=== PATIENT | female | born 1940 | race Caucasian/White ===

== ENCOUNTER 2023-06-04 22:05 | Inpatient (IN) | payer MEDICARE, MEDICAID ==
[~2023-06-04] VITALS: Ht 154 cm; Wt 49.3 kg
[2023-06-04 22:47] LABS: HEMOGLOBIN 15.2 g/dL (11.5-16.0)
[2023-06-04 22:49] LABS: BASOPHILS % (AUTO) 1 % (0-10); EOSINOPHILS % (AUTO) 0 % (0-10); HEMATOCRIT 47 % (35-52); LYMPHOCYTES # (AUTO) 1.2 10^3/uL (1.0-4.0); LYMPHOCYTES % (AUTO) 30 % (12-44); MEAN CORPUSCULAR HEMOGLOBIN 29 pg (25-34); MEAN CORPUSCULAR HGB CONC 32 g/dL (32-36); MEAN CORPUSCULAR VOLUME 89 fL (80-99); MEAN PLATELET VOLUME 11.8 fL (9.0-12.2); MONOCYTES # (AUTO) 0.7 10^3/uL (0.0-1.0); MONOCYTES % (AUTO) 17 % (0-12); NEUTROPHILS # (AUTO) 2.1 10^3/uL (1.8-7.8); NEUTROPHILS % (AUTO) 53 % (42-75); PLATELET COUNT 114 10^3/uL (130-400); WHITE BLOOD COUNT 4.1 10^3/uL (4.3-11.0)
--- NOTE | 2023-06-04 22:52 | ED General ---
General Chief Complaint: General Problems/Pain Stated Complaint: WEAKNESS Nursing Triage Note: PT TO ED W/ C/O GENERALIZED WEAKNESS, DECREASED APPETITE ONSET X2 DAYS, OCCASIONAL COUGH, JIMENEZ. PT VERY POOR HISTORIAN Source of Information: Patient (EXTREMELY POOR HISTORIAN AND EXTREMELY HARD OF HEARING--ATTEMPTED TO COMMUNICATE BY WRITING, AND SHE IS STILL AN EXTREMELY POOR HISTORIAN EVEN WITH THIS FORM OF COMMUNICATION. ) History of Present Illness Date Seen by Provider: Jun 04, 2023 Time Seen by Provider: 22:10 Initial Comments MALE FRIEND BROUGHT HER HERE AND DROPPED HER OFF AT THE FRONT OF ER, ER STAFF ASSISTED HER OUT OF VEHICLE AND INTO WHEELCHAIR AND INTO HER. THE PERSON THAT BROUGHT HER PROMPTLY LEFT AT THAT TIME, NOT GIVING ANY INFORMATION. PT C/O GENERALIZED WEAKNESS, AND HAS NOT BEEN EATING OR DRINKING SHE IS UNABLE TO STATE TO ME HOW LONG SHE HAS BEEN FEELING THIS WAY,BUT SHE REPORTED TO RN THAT IT HAD BEEN 2 DAYS SHE REPORTED OCCASIONAL COUGH AND HEADACHE TO RN SHE DENIED ANY OTHER SYMPTOMS TO ME UNABLE TO OBTAIN ANY OTHER INFORMATION FROM PT SHE DOES NOT KNOW WHO HER DR IS, WHAT MEDICAL PROBLEMS SHE HAS OR WHAT MEDICATIONS SHE TAKES. SHE DID REPORT TO RN THAT SHE HAS HAD COLON CANCER AND "THYROID ISSUES" SHE DOES BRING IN A HAND-WRITTEN LIST OF HER ALLERGIES SHE HAS NOT HAD ANY PRIOR VISITS HERE THROUGH MED RECONCILIATION, PT HAS BEEN PRESCRIBED: LEVOTHYROXINE, LINZESS AND OMEPRAZOLE BY DR. TON OSBORNE) AND VIKA GALLARDO PT IS EXTREMELY HARD OF HEARING, AND STATES SHE DID NOT BRING HER HEARING AIDS WITH HER. PT APPARENTLY LIVES ALONE Allergies and Home Medications Allergies Coded Allergies: Penicillins (Unverified Allergy, Unknown, 06/04/23) aspirin (Unverified Allergy, Unknown, 06/04/23) cephalexin (Unverified Allergy, Unknown, 06/04/23) codeine (Unverified Allergy, Unknown, 06/04/23) diphenhydramine (Unverified Allergy, Unknown, 06/04/23) iodine (Unverified Allergy, Unknown, 06/04/23) meperidine (Unverified Allergy, Unknown, 06/04/23) Uncoded Allergies: ANTIHISTAMINES (Allergy, Unknown, 06/04/23) DARVOTRON (Allergy, Unknown, 06/04/23) Patient Home Medication List Home Medication List Reviewed: Yes Review of Systems Review of Systems Constitutional: see HPI, malaise, weakness, other (DECREASED APPETITE) Gastrointestinal: loss of appetite Past Ynkjiah-Moqdxd-Ehufkd Hx Patient Social History Tobacco Use?: No Use of E-Cig and/or Vaping dev: No Substance use?: No Alcohol Use?: No Pt feels they are or have been: No Past Medical History Surgery/Hospitalization HX: COLON CA THYROID"ISSUES" Gastrointestinal: Yes (COLON CANCER) Chronic Constipation Endocrine: Yes Hypothyroidsim HEENT: Yes Hearing Impairment: Hard of Hearing Physical Exam Vital Signs Vital Signs - First Documented 06/04/23 22:10 Temp 36.9 Pulse 88 Resp 16 B/P (MAP) 111/75 (87) Pulse Ox 98 O2 Delivery Room Air Capillary Refill : Less Than 3 Seconds Height, Weight, BMI Height: '" Weight: lbs. oz. kg; 18.00 BMI Method: General Appearance: No Apparent Distress, WD/WN, Thin, Other (PT WITH HAIR DYED PURPLE, WEARING A PURPLE SCARF ON HER HEAD AND ALL CLOTHING IS PURPLE) HEENT: PERRL/EOMI, Other (ORAL MUCOSA SLIGHTLY DRY) Neck: Normal Inspection Respiratory: Normal Breath Sounds, No Accessory Muscle Use, No Respiratory D istress Cardiovascular: Regular Rate, Rhythm, No Edema, No JVD, No Murmur, Normal Peripheral Pulses Gastrointestinal: Normal Bowel Sounds, No Pulsatile Mass, Non Tender, Soft Back: No CVA Tenderness Extremity: Normal Capillary Refill, Normal Inspection, Normal Range of Motion, Non Tender, No Calf Tenderness, No Pedal Edema Neurologic/Psychiatric: Alert, Oriented x3 (GROSSLY ORIENTED, BUT IS EXTREMELY DIFFICULT TO OBTAIN ANY DETAILED MENTAL STATUS EXAM DUE TO PT'S HEARING DEFICIT, WELL POOR MEMORY--AGAIN, ATTEMPTED TO COMMUNICATE BY WRITING AND PT IS STILL AN EXTREMELY POOR HISTORIAN), No Motor/Sensory Deficits (GROSS MOTOR / SENSORY INTACT. PT WITH GENERALIZED WEAKNESS, BUT NO FOCAL DEFICITS. ), Normal Mood/Affect, piston maker II-XII Norm as Tested Skin: Normal Color, Warm/Dry Focused Exam Lactate Level 06/04/23 22:36: Lactic Acid Level 1.05 Lactic Acid Level Laboratory Tests Test 06/04/23 22:36 Lactic Acid Level 1.05 MMOL/L (0.50-2.00) Progress/Results/Core Measures Suspected Sepsis SIRS Temperature: Pulse: 88 Respiratory Rate: 16 Laboratory Tests 06/04/23 22:36: White Blood Count 4.1L Blood Pressure 111 /75 Mean: 87 06/04/23 22:36: Lactic Acid Level 1.05 Laboratory Tests 06/04/23 22:36: Creatinine 1.33H, INR Comment 1.1, Platelet Count 114L, Total Bilirubin 0.6 Results/Orders Lab Results Laboratory Tests Test 06/04/23 22:36 06/04/23 22:38 06/04/23 23:07 Range/Units White Blood Count 4.1 L 4.3-11.0 10^3/uL Red Blood Count 5.31 H 3.80-5.11 10^6/uL Hemoglobin 15.2 11.5-16.0 g/dL Hematocrit 47 35-52 % Mean Corpuscular Volume 89 80-99 fL Mean Corpuscular Hemoglobin 29 25-34 pg Mean Corpuscular Hemoglobin Concent 32 32-36 g/dL Red Cell Distribution Width 13.9 10.0-14.5 % Platelet Count 114 L 130-400 10^3/uL Mean Platelet Volume 11.8 9.0-12.2 fL Immature Granulocyte % (Auto) 1 % Neutrophils (%) (Auto) 53 42-75 % Lymphocytes (%) (Auto) 30 12-44 % Monocytes (%) (Auto) 17 H 0-12 % Eosinophils (%) (Auto) 0 0-10 % Basophils (%) (Auto) 1 0-10 % Neutrophils # (Auto) 2.1 1.8-7.8 10^3/uL Lymphocytes # (Auto) 1.2 1.0-4.0 10^3/uL Monocytes # (Auto) 0.7 0.0-1.0 10^3/uL Eosinophils # (Auto) 0.0 0.0-0.3 10^3/uL Basophils # (Auto) 0.0 0.0-0.1 10^3/uL Immature Granulocyte # (Auto) 0.0 0.0-0.1 10^3/uL Percent Immature Platelet Fraction 8.8 H 0.0-7.6 % Erythrocyte Sedimentation Rate 1 0-30 MM/HR Prothrombin Time 14.5 12.2-14.7 SEC INR Comment 1.1 0.8-1.4 Activated Partial Thromboplast Time 27 24-35 SEC Sodium Level 133 L 135-145 MMOL/L Potassium Level 4.3 3.6-5.0 MMOL/L Chloride Level 105 98-107 MMOL/L Carbon Dioxide Level 18 L 21-32 MMOL/L Anion Gap 10 5-14 MMOL/L Blood Urea Nitrogen 19 H 7-18 MG/DL Creatinine 1.33 H 0.60-1.30 MG/DL Estimat Glomerular Filtration Rate 40 BUN/Creatinine Ratio 14 Glucose Level 110 H 70-105 MG/DL Lactic Acid Level 1.05 0.50-2.00 MMOL/L Calcium Level 9.9 8.5-10.1 MG/DL Corrected Calcium 10.1 8.5-10.1 MG/DL Magnesium Level 2.0 1.6-2.4 MG/DL Total Bilirubin 0.6 0.1-1.0 MG/DL Aspartate Amino Transf (AST/SGOT) 26 5-34 U/L Alanine Aminotransferase (ALT/SGPT) 14 0-55 U/L Alkaline Phosphatase 100 40-136 U/L Total Creatine Kinase 43 29-168 U/L Creatine Kinase MB 0.9 <6.6 NG/ML Myoglobin 85.7 10.0-92.0 NG/ML Troponin I < 0.028 <0.028 NG/ML C-Reactive Protein High Sensitivity 0.98 H 0.00-0.50 MG/DL Total Protein 6.2 L 6.4-8.2 GM/DL Albumin 3.8 3.2-4.5 GM/DL Amylase Level 123 25-125 U/L Lipase 82 H 8-78 U/L TSH [place] Testing 4.00 0.35-4.94 UIU/ML Smear Scan YES Influenza Type A (RT-PCR) Not Detected Not Detecte Influenza Type B (RT-PCR) Not Detected Not Detecte SARS-CoV-2 RNA (RT-PCR) Detected H Not Detecte Urine Color YELLOW Urine Clarity CLEAR Urine pH 5.5 5-9 Urine Specific [place] 1.020 1.016-1.022 Urine Protein NEGATIVE NEGATIVE Urine Glucose (UA) NEGATIVE NEGATIVE Urine Ketones NEGATIVE NEGATIVE Urine Nitrite NEGATIVE NEGATIVE Urine Bilirubin NEGATIVE NEGATIVE Urine Urobilinogen 0.2 < = 1.0 MG/DL Urine Leukocyte Esterase NEGATIVE NEGATIVE Urine RBC (Auto) NEGATIVE NEGATIVE Urine RBC NONE /HPF Urine WBC NONE /HPF Urine Crystals PRESENT H /LPF Urine Amorphous Sediment FEW OSVALDO URATES H /LPF Urine Bacteria NEGATIVE /HPF Urine Casts PRESENT /LPF Urine Hyaline Casts RARE /LPF Urine Mucus SMALL H /LPF Urine Culture Indicated NO My Orders Orders - REYNA VANN DO Accucheck Stat ONCE (06/04/23 22:23) Ed Iv/Invasive Line Start (06/04/23 22:23) Ekg Tracing (06/04/23 22:23) Catheter(Urinary) Insert & Ass 03,15 (06/04/23 22:23) O2 (06/04/23 22:23) Monitor-Rhythm Ecg Trace Only (06/04/23 22:23) Ct Head Wo-R/O Stroke (06/04/23 22:23) Chest 1 View, Ap/Pa Only (06/04/23:) Amylase (06/04/23 22:) Cbc And Automated Diff (06/04/23 22:) Comprehensive Metabolic Panel (06/04/23 22:) Creatine Kinase (06/04/23 22:) Creatine Kinase Mb (06/04/23 22:23) Hs C Reactive Protein (06/04/23 22:23) Lactic Acid Analyzer (06/04/23 22:23) Lipase (06/04/23 22:23) Magnesium (06/04/23 22:23) Protime With Inr (06/04/23 22:23) Partial Thromboplastin Time (06/04/23 22:23) Thyroid Analyzer (06/04/23 22:23) Ua Culture If Indicated (06/04/23 22:23) Erythrocyte Sedimentation Rate (06/04/23 22:23) Myoglobin Serum (06/04/23 22:23) Troponin I Early (06/04/23 22:23) Ed Iv/Invasive Line Start (06/04/23 22:23) Covid 19 Inhouse Test (06/04/23 22:23) Influenza A And B By Pcr (06/04/23 22:23) Vital Signs/I&O 06/04/23 22:10 Temp 36.9 Pulse 88 Resp 16 B/P (MAP) 111/75 (87) Pulse Ox 98 O2 Delivery Room Air Capillary Refill : Less Than 3 Seconds Blood Pressure Mean: 87 Progress Note : Progress Note VITALS ON ARRIVAL: TEMP 36.9=98.4, HR 88, RR 16, BP 111/75, O2 SAT 98% ON ROOM AIR GIVEN: -IV FLUIDS LABS: -CBC WITH WBC 4.1, HGB 15.2, PLT 114,000 -CMP NA 133, K 4.3, BUN 19, CR 1.33, GLU 110, PROTEIN 6.2 -MG NORMAL -AMYLASE/LIPASE UNREMARKABLE -TROPONIN NEGATIVE -BNP NORMAL -PT/PTT/INR NORMAL -UA CLEAR -TSH 4.0 -SED RATE 1, CRP 0.98 -COVID POSITIVE -FLU NEGATIVE EKG UNREMARKABLE CXR--UNREMARKABLE, PENDING RADIOLOGIST REVIEW CT HEAD--NO ACUTE PROCESS VITALS STABLE, AFEBRILE NO COUGH NO DYSPNEA NO HYPOXIA NO FEVER NO GI SYMPTOMS UNEVENTFUL ER STAY DISCUSSED TEST RESULTS, AND NEED FOR ADMIT AND PT IS AGREEABLE TO ADMIT. NO PRIOR RECORDS ECG Initial ECG Impression Date: Jun 04, 2023 Initial ECG Impression Time: 23:21 Initial ECG Rate: 74 Initial ECG Rhythm: Normal Sinus Initial ECG Intervals OK 183 QRS 64 QT/QTC 363/390 Initial ECG Impression: Nonspecific Changes Initial ECG Comparisson: No Previous ECG Available Comment INTERPRETED BY ME Diagnostic Imaging Comments CXR--NO ACUTE PROCESS, PENDING RADIOLOGIST REVIEW CT HEAD--NO ACUTE PROCESS, PER [facility] RADIOLOGIST VIA PHONE AT [phone] AND VIA FAX AT [phone] Reviewed: Reviewed by Me, Discussed w/Radiologist Departure Communication (Admissions) 2342--SPOKE WITH DR. BEASLEY, HOSPITALIST, ACCEPTS PT FOR ADMIT Impression Primary Impression: COVID-19 virus infection Additional Impressions: Generalized weakness Dehydration Hard of hearing Unable to care for self Disposition: ADMITTED INPATIENT Condition: Stable Admissions Decision to Admit Reason: Admit from ER (General) Decision to Admit/Date: Jun 04, 2023 Time/Decision to Admit Time: 23:45 REYNA VANN DO Jun 04, 2023 22:52
[2023-06-04 22:54] LABS: SMEAR SCAN COMMENT YES
[2023-06-04 23:00] LABS: INR 1.1 (0.8-1.4); PROTHROMBIN TIME PATIENT 14.5 SEC (12.2-14.7)
[2023-06-04 23:02] LABS: ALBUMIN 3.8 GM/DL (3.2-4.5); CHLORIDE 105 MMOL/L (98-107); POTASSIUM 4.3 MMOL/L (3.6-5.0); SODIUM 133 MMOL/L (135-145)
[2023-06-04 23:04] LABS: AMYLASE 123 U/L (25-125); CALCIUM 9.9 MG/DL (8.5-10.1)
[2023-06-04 23:05] LABS: GLUCOSE 110 MG/DL (70-105); TOTAL PROTEIN 6.2 GM/DL (6.4-8.2)
[2023-06-04 23:06] LABS: BILIRUBIN,TOTAL 0.6 MG/DL (0.1-1.0); CARBON DIOXIDE 18 MMOL/L (21-32)
[2023-06-04 23:08] LABS: ALKALINE PHOSPHATASE 100 U/L (40-136); CREATININE SERUM 1.33 MG/DL (0.60-1.30); GFR ESTIMATED 40
[2023-06-04 23:09] LABS: BUN/CREATININE RATIO 14
[2023-06-04 23:11] LABS: ALANINE AMINOTRANSFERASE 14 U/L (0-55); ERYTHROCYTE SEDIMENTATION RATE 1 MM/HR (0-30)
[2023-06-04 23:12] LABS: CREATINE KINASE 43 U/L (29-168); LIPASE 82 U/L (8-78)
[2023-06-04 23:20] LABS: CREATINE KINASE MB 0.9 NG/ML (<6.6)
[2023-06-04 23:38] LABS: BACTERIA,URINE NEGATIVE /HPF; BILIRUBIN,URINE NEGATIVE (NEGATIVE); CLARITY,URINE CLEAR; COLOR,URINE YELLOW; GLUCOSE, URINE (UA) NEGATIVE (NEGATIVE); KETONES,URINE NEGATIVE (NEGATIVE); LEUKOCYTE ESTERASE ,URINE NEGATIVE (NEGATIVE); NITRITE,URINE NEGATIVE (NEGATIVE); PH,URINE 5.5 (5-9); PROTEIN,URINE NEGATIVE (NEGATIVE)
[2023-06-04 23:39] LABS: AMORPHOUS SEDIMENT,UR FEW AMOR URATES /LPF; HYALINE CASTS, URINE RARE /LPF
[2023-06-05] VITALS (7 sets, daily range): BP systolic 102–164; BP diastolic 62–72
[2023-06-05] MEDS ORDERED: LIDOCAINE UROJET 2% GEL 10 ML PKG TOP ONE (01:15)
[2023-06-05] MEDS ORDERED: ONDANSETRON INJECTION 4 MG/2 ML (SDV) IV PRN (01:30)
[2023-06-05] MEDS ORDERED: ACETAMINOPHEN 500 MG TABLET PO PRN (01:30)
[2023-06-05] MEDS: D5 1/2NS + KCL 20 MEQ/L 1000ML 1,000 ML IV SCH ×3 (01:52→21:31)
[2023-06-05 06:08] LABS: BASOPHILS % (AUTO) 0 % (0-10); EOSINOPHILS % (AUTO) 0 % (0-10); MEAN PLATELET VOLUME 11.7 fL (9.0-12.2)
[2023-06-05 06:10] LABS: HEMATOCRIT 45 % (35-52); HEMOGLOBIN 14.9 g/dL (11.5-16.0); LYMPHOCYTES # (AUTO) 1.2 10^3/uL (1.0-4.0); LYMPHOCYTES % (AUTO) 36 % (12-44); MEAN CORPUSCULAR HEMOGLOBIN 29 pg (25-34); MEAN CORPUSCULAR HGB CONC 33 g/dL (32-36); MEAN CORPUSCULAR VOLUME 87 fL (80-99); MONOCYTES # (AUTO) 0.6 10^3/uL (0.0-1.0); MONOCYTES % (AUTO) 17 % (0-12); NEUTROPHILS # (AUTO) 1.5 10^3/uL (1.8-7.8); NEUTROPHILS % (AUTO) 46 % (42-75); PLATELET COUNT 111 10^3/uL (130-400); WHITE BLOOD COUNT 3.3 10^3/uL (4.3-11.0)
[2023-06-05 06:12] LABS: POTASSIUM 4.4 MMOL/L (3.6-5.0)
[2023-06-05 06:13] LABS: CALCIUM 9.4 MG/DL (8.5-10.1)
[2023-06-05 06:17] LABS: CREATININE SERUM 1.03 MG/DL (0.60-1.30)
--- NOTE | 2023-06-05 07:47 | Diagnostic Imaging Report ---
EXAMINATION: CT head without contrast. TECHNIQUE: Multiple contiguous axial images were obtained through the brain without the use of intravenous contrast. All CT scans use one or more of the following dose optimizing techniques: automated exposure control, MA and/or KvP adjustment based on patient size and exam type or iterative reconstruction. HISTORY: Weakness. Focal neurologic deficit. Headache. COMPARISON: None available. FINDINGS: No large acute territorial ischemia, mass, or hemorrhage. No midline shift or mass effect. Decreased attenuation is seen in the periventricular and subcortical white matter. The ventricles and cortical sulci are prominent. The basilar cisterns are patent and unremarkable. The orbits are normal. Paranasal sinuses are normal. Mastoid air cells are clear. No soft tissue abnormality is seen. No osseus lesions or fractures are seen. IMPRESSION: 1. No large acute territorial ischemia, mass, or hemorrhage. 2. Chronic microvascular disease. 3. Generalized parenchymal volume loss. Agree with overnight report. Dictated by: Dictated on workstation # [id number]
--- NOTE | 2023-06-05 09:11 | Diagnostic Imaging Report ---
INDICATION: Generalized weakness, decreased appetite onset x2 days, occasional cough and headache. TECHNIQUE: Single view chest 10:56 PM CORRELATION STUDY: None FINDINGS: Heart size within normal limits. Vascularity slightly prominent. There is prominent calcification of the thoracic aorta. Lung parekh mildly hyperinflated with prominent interstitial markings likely chronic. No acute infiltrate. Mild biapical pleural thickening. [place] screw right humeral head. Mild S-type curvature thoracic spine. IMPRESSION: 1. Negative for acute abnormality of the chest. Likely mild chronic changes of the lung parekh. Dictated by: Dictated on workstation # [id number]
[2023-06-05] MEDS: IBUPROFEN 600 MG TABLET PO PRN (09:12)
--- NOTE | 2023-06-05 10:00 | History & Physical-Hospitalist ---
History of Present Illness HPI/Chief Complaint Patient is an 82-year-old female with past medical history of for thyroidism who presented to the emergency department due to weakness. She is unable to provide much history and is very hard of hearing. She is able to tell me that she has been feeling well but cannot tell me for how long will really quantify what that means. Most of the history is obtained from the record. She was dropped off by someone into the emergency room. She reported to them that she was weak and not eating or drinking well. He was found to have COVID in the emergency department. All she is able to tell me is that she is very careful and tries not to be around people and that she has no other medical problems besides taking her thyroid pill when she does not like to take pills. Source: patient Date Seen 06/05/23 Time Seen by a Provider: 09:53 Attending Physician PCP Admitting Physician: Inga Garvey MD Attending Physician: Inga Garvey MD Referring Physician Date of Admission Jun 05, 2023 at 00:43 Home Medications & Allergies Home Medications Reviewed patient Home Medication Reconciliation performed by pharmacy medication reconciliations valve technician and/or nursing. Patients Allergies have been reviewed. Allergies Allergies Coded Allergies Penicillins (Unverified Allergy, Unknown, 06/04/23) aspirin (Unverified Allergy, Unknown, 06/04/23) cephalexin (Unverified Allergy, Unknown, 06/04/23) codeine (Unverified Allergy, Unknown, 06/04/23) diphenhydramine (Unverified Allergy, Unknown, 06/04/23) iodine (Unverified Allergy, Unknown, 06/04/23) meperidine (Unverified Allergy, Unknown, 06/04/23) Uncoded Allergies ANTIHISTAMINES ( Allergy, Unknown, 06/04/23) DARVOTRON ( Allergy, Unknown, 06/04/23) Past Uviawod-Spuccx-Syxjmp Hx Patient Social History Tobacco Use?: No Use of E-Cig and/or Vaping dev: No Substance use?: No Alcohol Use?: No Pt feels they are or have been: No Immunizations Up To Date Tetanus Booster (TDap): Unknown Current Status status: No status: No Advance Directives: No Communicates: Verbally Preferred Spoken Language: Turkish Is interpretation needed?: No Sensory deficits: Vision impairment, Hearing impairment Past Medical History Chronic Constipation Hypothyroidsim Hearing Impairment: Hard of Hearing Review of Systems Constitutional: see HPI Physical Exam Physical Exam Vital Signs Vital Signs - First Documented 06/04/23 22:10 Temp 36.9 Pulse 88 Resp 16 B/P (MAP) 111/75 (87) Pulse Ox 98 O2 Delivery Room Air Capillary Refill : Less Than 3 Seconds Height, Weight, BMI Height: '" Weight: lbs. oz. kg; 18.00 BMI Method: General Appearance: No Apparent Distress, Chronically ill, Thin Respiratory: Lungs Clear, No Respiratory Distress Cardiovascular: Regular Rate, Rhythm, No Murmur Gastrointestinal: Normal Bowel Sounds, Non Tender, Soft Extremity: No Calf Tenderness, No Pedal Edema Neurologic/Psychiatric: Alert, Normal Mood/Affect, Other (oriented to major details) Results Results/Procedures Labs Laboratory Tests 06/04/23 22:36 06/05/23 05:25 Patient resulted labs reviewed. Imaging: Reviewed Imaging Report [facility] [place] [place] NAME: ALEXIS PHELPS [place] REC#: [id number] PT STATUS: ADM IN : 1940 PHYSICIAN: REYNA VANN DO ADMIT DATE: 06/05/23 Draft Date of Exam:06/04/23 CHEST 1 VIEW, AP/PA ONLY INDICATION: Generalized weakness, decreased appetite onset x2 days, occasional cough and headache. TECHNIQUE: Single view chest 10:56 PM CORRELATION STUDY: None FINDINGS: Heart size within normal limits. Vascularity slightly prominent. There is prominent calcification of the thoracic aorta. Lung parekh mildly hyperinflated with prominent interstitial markings likely chronic. No acute infiltrate. Mild biapical pleural thickening. [place] screw right humeral head. Mild S-type curvature thoracic spine. IMPRESSION: 1. Negative for acute abnormality of the chest. Likely mild chronic changes of the lung parekh. Dictated on workstation # [id number] Dict: 06/05/23 0746 Trans: 06/05/23 0909 TEMI [id number] Interpreted by: DIANA LERMA DO Electronically signed by: [facility] [place] NAME: ALEXIS PHELPS [place] REC#: [id number] PT STATUS: ADM IN : 1940 PHYSICIAN: REYNA VANN DO ADMIT DATE: 06/05/23 Signed Date of Exam:06/04/23 CT HEAD WO-R/O STROKE EXAMINATION: CT head without contrast. TECHNIQUE: Multiple contiguous axial images were obtained through the brain without the use of intravenous contrast. All CT scans use one or more of the following dose optimizing techniques: automated exposure control, MA and/or KvP adjustment based on patient size and exam type or iterative reconstruction. HISTORY: Weakness. Focal neurologic deficit. Headache. COMPARISON: None available. FINDINGS: No large acute territorial ischemia, mass, or hemorrhage. No midline shift or mass effect. Decreased attenuation is seen in the periventricular and subcortical white matter. The ventricles and cortical sulci are prominent. The basilar cisterns are patent and unremarkable. The orbits are normal. Paranasal sinuses are normal. Mastoid air cells are clear. No soft tissue abnormality is seen. No osseus lesions or fractures are seen. IMPRESSION: 1. No large acute territorial ischemia, mass, or hemorrhage. 2. Chronic microvascular disease. 3. Generalized parenchymal volume loss. Agree with overnight report. Dictated by: Dictated on workstation # [id number] Dict: 06/05/2343 Trans: 06/05/23800 TEMI [id number] Interpreted by: KAMALA BRANNON DO Electronically signed by: KAMALA BRANNON DO 06/05/23 0801 Assessment/Plan Admission Diagnosis COVID19 Admission Status: Inpatient Order (span 2 midnights) Reason for Inpatient Admission: see below Assessment and Plan COVID19 Debility DHARA Hypovolemic Hyponatremia Very weak PT/OT Not on oxygen so no need for decadron Continue IVF Creatinine improved so will decrease rate Hypothyroidism TSH normal Resume synthroid DVT ppx: Lovenox Diagnosis/Problems Diagnosis/Problems (1) DHARA (acute kidney injury) (2) COVID-19 virus infection Status: Acute (3) Unable to care for self Status: Acute (4) Hard of hearing Status: Acute (5) Generalized weakness Status: Acute (6) Dehydration Status: Acute Copy Copies To 1: NBA CAMILO MD, KATELYN M MD Jun 05, 2023 10:00
[2023-06-05] MEDS ORDERED: LEVOTHYROXINE 50 MCG TABLET PO NR (10:15)
[2023-06-05] MEDS: ENOXAPARIN 40 MG/0.4 ML SYRINGE SQ SCH (10:37)
[2023-06-06 00:05] VITALS: BP 163/70
[2023-06-06] MEDS: IBUPROFEN 600 MG TABLET PO PRN (03:09)
[2023-06-06 03:18] VITALS: BP 124/63
[2023-06-06] MEDS ORDERED: LEVOTHYROXINE 50 MCG TABLET PO SCH (06:30)
[2023-06-06 08:32] VITALS: BP 121/58
[2023-06-06] MEDS: ENOXAPARIN 40 MG/0.4 ML SYRINGE SQ SCH (09:48)
[2023-06-06] MEDS: D5 1/2NS + KCL 20 MEQ/L 1000ML 1,000 ML IV SCH (11:32)
[2023-06-06] MEDS ORDERED: LEVO50TA6 PO (12:43)
[2023-06-06] MEDS ORDERED: LINA72CA PO (12:43)
[2023-06-06 12:59] VITALS: BP 149/65
--- NOTE | 2023-06-06 14:11 | Physical Therapy Evaluation ---
PT Evaluation-General Medical Diagnosis Admission Date Jun 05, 2023 at 00:43 Medical Diagnosis: COVID Onset Date: Jun 06, 2023 Therapy Diagnosis Therapy Diagnosis: weakness Precautions Precautions/Isolations: Contact Isolation, Droplet Isolation Referral Reason for Referral: Evaluation/Treatment Medical History Additional Medical History neck pain Current History Pt presented to the ER with progressive weakness and inability to manage at home. Pt tested positive for COVID 19. Reviewed History: Yes Social History Home: Apartment Current Living Status: Alone Prior Prior Level of Function SCALE: Activities may be completed with or without assistive devices. 6-Rkbllnenjx-yucwivj completes the activity by him/herself with no assistance from a helper. 5-Set-up or Clean-up Assistance-helper sets up or cleans up; patient completes activity. [place] assists only prior to or following the activity. 4-Supervision or Touching Assistance-helper provides verbal cues and/or touching/steadying and/or contact guard assistance as patient completes activity. Assistance may be provided throughout the activity or intermittently. 3-Partial/Moderate Assistance-helper does LESS THAN HALF the effort. [place] lifts, holds or supports trunk or limbs, but provides less than half the effort. 2-Substantial/Maximal Assistance-helper does MORE THAN HALF the effort. [place] lifts or holds trunk or limbs and provides more than half the effort. 3-Owpqewnus-odjeye does ALL the effort. Patient does none of the effort to complete the activity. Or, the assistance of 2 or more helpers is required for the patient to complete the activity. If activity was not attempted, code reason: 7-Patient Refused. 9-Not Applicable-not attempted and the patient did not perform the activity before the current illness, exacerbation or injury. 10-Not Attempted due to Environmental Limitations-(lack of equipment, weather restraints, etc.). 88-Not Attempted due to Medical Conditions or Safety Concerns. Bed Mobility: 6 Transfers (B,C,W/C): 6 Gait: 6 PT Evaluation-Current Subjective Pt reports she hopes to go home soon. Objective Patient Orientation: Normal For Age Sensory Vision: Functional Hearing: Impaired Transfers Roll Left to Right (QC): 6 Sit to Lying (QC): 6 Lying to Sitting/Side of Bed(Q: 6 Sit to Stand (QC): 6 Chair/Jst-hg-Xbzjf Xfer(QC): 6 Gait Walk 150 ft (QC): 6 Gait Assistive Device: None Comments/Gait Description Pt demonstrated (I) with ambulation in the room including left and right hand turns. Balance Sitting Static: Good Sitting Dynamic: Good Standing Static: Good Standing Dynamic: Good Assessment/Needs Pt able to demonstrate independent mobility in her room. She does occassionally use furniture for balance. Pt resides in a small apartment. She demonstrated sufficient balance to return home at her prior level of function. Rehab Potential: Good PT Residential Goals Residential Goals PT Residential Goals Time Frame: Jun 06, 2023 Roll Left & Right (QC): 6 Sit to Lying (QC): 6 Lying-Sitting on Side/Bed(QC): 6 Sit to Stand (QC): 6 Chair/Jze-ie-Oloyk Xfer(QC): 6 Does the Patient Walk: Yes Walk 50ft with 2 Turns (QC): 6 PT Plan Problem List Problem List: Balance, Gait Treatment/Plan Treatment Plan: Discontinue PT, goals met Treatment Plan: Safety Treatment Duration: Jun 06, 2023 Frequency: 1 time per week Estimated Hrs Per Day: .25 hour per day Patient and/or Family Agrees t: Yes Safety Risks/Education Patient Education: Gait Training Teaching Recipient: Patient Teaching Methods: Demonstration, Discussion Time Time In: 1350 Time Out: 1410 DATE: Jun 06, 2023 Total Billed Treatment Time: 20 Total Billed Treatment visit, evaluation low complexity 20 min TIFFANIE HENDRICKS PT Jun 06, 2023 14:11
== END 2023-06-06 14:20 | disposition home or self-care (01) | DRG 178 ==
LOC: EDUNIT# 22:05 → ER 22:05 → 4TH 06-05 00:43
PROVIDERS: ADMIT Family Medicine; ATTEND Internal Medicine
PROC: 8E0ZXY6 Isolation (ICD-10-PCS; principal; 2023-06-05)
DX: U07.1 COVID-19 (principal); E87.1 Hypo-osmolality and hyponatremia; N17.9 Acute kidney failure, unspecified; R53.81 Other malaise; E86.1 Hypovolemia; E03.9 Hypothyroidism, unspecified; E86.0 Dehydration; H91.90 Unspecified hearing loss, unspecified ear; Z85.038 Personal history of other malignant neoplasm of large intestine
CPT/HCPCS: 36415; 70450; 71045; 80048; 80053; 81000; 82150; 82550; 82553; 83605; 83690; 83735; 83874; 84443; 84484; 85025; 85610; 85652; 85730; 86141; 87636; 93005; 93041

== ENCOUNTER 2023-06-09 17:35 | Observation (INO) | payer MEDICARE, MEDICAID ==
[~2023-06-09] VITALS: Ht 149.8 cm; Wt 45.9 kg
[~2023-06-09 17:35] MED LIST: LEVO50TA6 PO; LINA72CA PO
--- NOTE | 2023-06-09 17:53 | ED General ---
General Chief Complaint: General Problems/Pain Stated Complaint: WEAKNESS Source of Information: Patient, Caregiver (VERY LIMITED HISTORIAN AND VERY HARD OF HEARING. DOES NOT HAVE HER HEARING AIDS IN ), EMS, Old Records History of Present Illness Date Seen by Provider: Jun 09, 2023 Time Seen by Provider: 17:45 Initial Comments PT ARRIVES VIA EMS FROM HOME--PT APPARENTLY LIVES ALONE PT WAS ADMITTED 06/05-06/06/23--PT HAS COVID AND HER COMPLAINT LAST WEEK WAS GENERALIZED WEAKNESS C/O GENERALIZED WEAKNESS--PT UNABLE TO CARE FOR HERSELF TEMP WAS 102 FOR EMS TONIGHT UNABLE TO OBTAIN ANY OTHER INFORMATION FROM PT PT HAS NOT HAD ANY PRIOR VISITS OTHER THAN THE ADMIT THIS PAST WEEK SHE IS EXTREMELY HARD OF HEARING, AND EVEN WITH COMMUNICATING IN WRITING, SHE IS STILL A VERY POOR HISTORIAN. THERE IS NO ONE ELSE WITH HER TO GIVE ADDITIONAL INFORMATION Allergies and Home Medications Allergies Coded Allergies: Penicillins (Unverified Allergy, Unknown, 06/04/23) aspirin (Unverified Allergy, Unknown, 06/04/23) cephalexin (Unverified Allergy, Unknown, 06/04/23) codeine (Unverified Allergy, Unknown, 06/04/23) diphenhydramine (Unverified Allergy, Unknown, 06/04/23) iodine (Unverified Allergy, Unknown, 06/04/23) meperidine (Unverified Allergy, Unknown, 06/04/23) Uncoded Allergies: ANTIHISTAMINES (Allergy, Unknown, 06/04/23) DARVOTRON (Allergy, Unknown, 06/04/23) Patient Home Medication List Home Medication List Reviewed: Yes Levothyroxine Sodium (Levothyroxine Sodium) 50 Mcg Tablet, 50 MCG PO DAILY, (Reported) Entered as Reported by: SALEEM LILLY on 06/06/23 1243 Linaclotide (Linzess) 72 Mcg Capsule, 72 MCG PO DAILY, (Reported) Entered as Reported by: SALEEM LILLY on 06/06/23 1243 Review of Systems Review of Systems Constitutional: see HPI, malaise, weakness Past Nudlzkf-Nsgajb-Ctxplo Hx Patient Social History Tobacco Use?: No Substance use?: No Alcohol Use?: No Past Medical History Surgery/Hospitalization HX: COLON CA THYROID"ISSUES" Gastrointestinal: Yes (COLON CANCER) Chronic Constipation Endocrine: Yes Hypothyroidsim HEENT: Yes Hearing Impairment: Hard of Hearing Physical Exam Vital Signs Vital Signs - First Documented 06/09/23 17:40 Temp 38.0 Pulse 92 B/P (MAP) 131/75 (93) Pulse Ox 96 O2 Delivery Room Air Capillary Refill : Height, Weight, BMI Height: '" Weight: lbs. oz. kg; 18.00 BMI Method: General Appearance: No Apparent Distress, WD/WN, Chronically ill, Thin, Other (GENERALIZED WEAKNESS, LETHARGIC, MOANING) HEENT: PERRL/EOMI Neck: Normal Inspection Respiratory: Normal Breath Sounds, No Accessory Muscle Use, No Respiratory Distress Cardiovascular: Regular Rate, Rhythm, No Murmur Gastrointestinal: Non Tender, Soft Back: No CVA Tenderness Extremity: Normal Inspection, No Pedal Edema Neurologic/Psychiatric: Alert, No Motor/Sensory Deficits, workforce management manager II-XII Norm as Tested, Other (GENERALIZED WEAKNESS, NO FOCAL DEFICITS. LETHARGIC. ) Skin: Normal Color, Warm/Dry Focused Exam Lactate Level 06/09/23 18:00: Lactic Acid Level 1.05 Lactic Acid Level Laboratory Tests Test 06/09/23 18:00 Lactic Acid Level 1.05 MMOL/L (0.50-2.00) Progress/Results/Core Measures Suspected Sepsis SIRS Temperature: Pulse: Respiratory Rate: Laboratory Tests 06/09/23 18:00: White Blood Count 6.3 Blood Pressure / Mean: 06/09/23 18:00: Lactic Acid Level 1.05 Laboratory Tests 06/09/23 18:00: Creatinine 1.26, Platelet Count 138, Total Bilirubin 0.8 06/09/23 18:20: INR Comment 1.0 Results/Orders Lab Results Laboratory Tests Test 06/09/23 18:00 06/09/23 18:20 06/09/23 19:25 Range/Units White Blood Count 6.3 4.3-11.0 10^3/uL Red Blood Count 5.14 H 3.80-5.11 10^6/uL Hemoglobin 14.6 11.5-16.0 g/dL Hematocrit 45 35-52 % Mean Corpuscular Volume 88 80-99 fL Mean Corpuscular Hemoglobin 28 25-34 pg Mean Corpuscular Hemoglobin Concent 32 32-36 g/dL Red Cell Distribution Width 13.5 10.0-14.5 % Platelet Count 138 130-400 10^3/uL Mean Platelet Volume 11.0 9.0-12.2 fL Immature Granulocyte % (Auto) 1 % Neutrophils (%) (Auto) 58 42-75 % Lymphocytes (%) (Auto) 28 12-44 % Monocytes (%) (Auto) 12 0-12 % Eosinophils (%) (Auto) 0 0-10 % Basophils (%) (Auto) 0 0-10 % Neutrophils # (Auto) 3.7 1.8-7.8 10^3/uL Lymphocytes # (Auto) 1.8 1.0-4.0 10^3/uL Monocytes # (Auto) 0.7 0.0-1.0 10^3/uL Eosinophils # (Auto) 0.0 0.0-0.3 10^3/uL Basophils # (Auto) 0.0 0.0-0.1 10^3/uL Immature Granulocyte # (Auto) 0.1 0.0-0.1 10^3/uL Percent Immature Platelet Fraction 6.3 0.0-7.6 % Sodium Level 133 L 135-145 MMOL/L Potassium Level 4.6 3.6-5.0 MMOL/L Chloride Level 105 98-107 MMOL/L Carbon Dioxide Level 19 L 21-32 MMOL/L Anion Gap 9 5-14 MMOL/L Blood Urea Nitrogen 23 H 7-18 MG/DL Creatinine 1.26 0.60-1.30 MG/DL Estimat Glomerular Filtration Rate 42 BUN/Creatinine Ratio 18 Glucose Level 114 H 70-105 MG/DL Lactic Acid Level 1.05 0.50-2.00 MMOL/L Calcium Level 9.7 8.5-10.1 MG/DL Corrected Calcium 9.9 8.5-10.1 MG/DL Magnesium Level 1.9 1.6-2.4 MG/DL Total Bilirubin 0.8 0.1-1.0 MG/DL Aspartate Amino Transf (AST/SGOT) 30 5-34 U/L Alanine Aminotransferase (ALT/SGPT) 14 0-55 U/L Alkaline Phosphatase 85 40-136 U/L Troponin I < 0.028 <0.028 NG/ML Total Protein 6.4 6.4-8.2 GM/DL Albumin 3.7 3.2-4.5 GM/DL Smear Scan YES Prothrombin Time 13.2 12.2-14.7 SEC INR Comment 1.0 0.8-1.4 Activated Partial Thromboplast Time 28 24-35 SEC Urine Color YELLOW Urine Clarity CLOUDY Urine pH 6.0 5-9 Urine Specific [place] >=1.030 1.016-1.022 Urine Protein 3+ H NEGATIVE Urine Glucose (UA) NEGATIVE NEGATIVE Urine Ketones 1+ H NEGATIVE Urine Nitrite POSITIVE H NEGATIVE Urine Bilirubin NEGATIVE NEGATIVE Urine Urobilinogen 0.2 < = 1.0 MG/DL Urine Leukocyte Esterase 1+ H NEGATIVE Urine RBC (Auto) 3+ H NEGATIVE Urine RBC 25-50 H /HPF Urine WBC TNTC H /HPF Urine Squamous Epithelial Cells 5-10 /HPF Urine Crystals NONE /LPF Urine Bacteria MODERATE H /HPF Urine Casts NONE /LPF Urine Mucus NEGATIVE /LPF Urine Culture Indicated CULTURE PENDING My Orders Orders - REYNA VANN DO Ed Iv/Invasive Line Start (06/09/23 17:46) Ekg Tracing (06/09/23 17:46) O2 (06/09/23 17:46) Monitor-Rhythm Ecg Trace Only (06/09/23 17:46) Cbc And Automated Diff (06/09/23 17:46) Comprehensive Metabolic Panel (06/09/23 17:46) Lactic Acid Analyzer (06/09/23 17:46) Magnesium (06/09/23 17:46) Ua Culture If Indicated (06/09/23 17:46) Troponin I [place] (06/09/23 17:46) Chest 1 View, Ap/Pa Only (06/09/23 17:46) Lidocaine 2% (Urojet) (Lidocaine 2% (Uro (06/09/23 18:00) Blood Culture (06/09/23 17:49) Sputum Culture (06/09/23 17:49) Urine Culture (06/09/23 17:49) Protime With Inr (06/09/23 17:49) Partial Thromboplastin Time (06/09/23 17:49) Acetaminophen Tablet (Acetaminophen Ta (06/09/23 18:00) Ed Iv/Invasive Line Start (06/09/23 17:49) Ed Iv/Invasive Line Start (06/09/23 17:49) Vital Signs Adult Sepsis Patie Q15M (06/09/23 17:49) O2 (06/09/23 17:49) Remove Rings In Anticipation O (06/09/23 17:49) Ns Iv 1000 Ml (Ns Iv 1000 Ml) (06/09/23 18:00) Meropenem Injection (Meropenem Injecti (06/09/23 18:00) Ed Admission (Communication) (06/09/23 19:48) Medications Given in ED Current Medications Medications Dose Ordered Sig/Beckie Route Start Time Stop Time Status Last Admin Dose Admin Acetaminophen 1,000 mg ONCE PRN PO 06/09/23 18:00 06/09/23 18:26 DC 06/09/23 18:25 1,000 MG Meropenem 500 mg/ Sodium Chloride 100 ml @ 200 mls/hr ONCE ONCE IV 06/09/23 18:00 06/09/23 18:29 DC 06/09/23 18:25 200 MLS/HR Vital Signs/I&O 06/09/23 06/09/23 17:40 17:40 Temp 38.0 Pulse 92 B/P (MAP) 131/75 (93) Pulse Ox 96 O2 Delivery Room Air Room Air 06/10/23 00:00 Intake Total 1100 ml Balance 1100 ml Capillary Refill : Progress Note : Progress Note VITALS ON ARRIVAL: TEMP 38.0=100.4, HR 92, BP 131/75, RR 20, O2 SAT 95% ON ROOM AIR PPE WORN SEPSIS PROTOCOL INITIATED PT REFUSES CATHETER, PURE WICK PLACED GIVEN: -IV FLUIDS -TYLENOL -MEROPENEM LABS: -CBC NORMAL WITH WBC 6.3 -CMP WITH NA 133, BUN 23, OTHERWISE NORMAL -MG NORMAL -PT/PTT/INR NORMAL -LACTIC ACID NORMAL 1.05 -UA WITH 3+ PROTEIN, + NITRITES, 1+ LEUKOCYTES, 25-50 RBC, TNTC WBC, MODERATE BACTERIA EKG UNREMARKABLE CXR UNREMARKABLE VITALS STABLE NO DETERIORATION IN PT'S CONDITION DURING ER STAY DISCUSSED TEST RESULTS, AND NEED FOR ADMIT--WRITTEN ON PAPER TO COMMUNICATE WITH PT, AND SHE AGREES TO ADMIT. REVIEWED PRIOR ADMIT RECORDS ECG Initial ECG Impression Date: Jun 09, 2023 Initial ECG Impression Time: 18:03 Initial ECG Rate: 88 Initial ECG Rhythm: Normal Sinus Initial ECG Intervals: Normal Initial ECG Impression: Nonspecific Changes Initial ECG Comparisson: Unchanged Comment INTERPRETED BY ME Diagnostic Imaging Comments CXR--PER RADIOLOGIST REPORT AT 1838 Findings: The lungs are clear. No failure, effusion or pneumothorax. There has been no change. Impression: Stable unremarkable frontal chest x-ray. Reviewed: Reviewed by Me Departure Communication (Admissions) 1905--MESSAGE TO DR. BLAIR, ON CELL. 1944--SPOKE WITH DR. BLAIR, HOSPITALIST, ACCEPTS PT FOR ADMIT. SHE WILL DO ADMIT ORDERS Impression Primary Impression: COVID-19 virus infection Additional Impressions: Generalized weakness Dehydration Hyponatremia Urinary tract infection Disposition: ADMITTED INPATIENT Condition: Stable Admissions Decision to Admit Reason: Admit from ER (General) Decision to Admit/Date: Jun 09, 2023 Time/Decision to Admit Time: 19:45 Departure-Patient Inst. Referrals: ROB THACKER MD (PCP) Primary Care Physician REYNA VANN DO Jun 09, 2023 17:53
[2023-06-09] MEDS ORDERED: LIDOCAINE UROJET 2% GEL 10 ML PKG TOP ONE (18:00)
[2023-06-09] MEDS ORDERED: MEROPENEM INJECTION 500 MG in NS (IVPB) 100 ML 100 ML IV ONE (18:00)
[2023-06-09] MEDS ORDERED: NS IV 1000 ML 1,000 ML IV SCH (18:00)
[2023-06-09] MEDS ORDERED: ACETAMINOPHEN 500 MG TABLET PO PRN (18:00)
[2023-06-09 18:10] LABS: BASOPHILS % (AUTO) 0 % (0-10); EOSINOPHILS % (AUTO) 0 % (0-10); MEAN CORPUSCULAR VOLUME 88 fL (80-99); PLATELET COUNT 138 10^3/uL (130-400)
[2023-06-09 18:12] LABS: HEMATOCRIT 45 % (35-52); HEMOGLOBIN 14.6 g/dL (11.5-16.0); LYMPHOCYTES # (AUTO) 1.8 10^3/uL (1.0-4.0); LYMPHOCYTES % (AUTO) 28 % (12-44); MEAN CORPUSCULAR HEMOGLOBIN 28 pg (25-34); MEAN CORPUSCULAR HGB CONC 32 g/dL (32-36); MONOCYTES # (AUTO) 0.7 10^3/uL (0.0-1.0); MONOCYTES % (AUTO) 12 % (0-12); NEUTROPHILS # (AUTO) 3.7 10^3/uL (1.8-7.8); NEUTROPHILS % (AUTO) 58 % (42-75); WHITE BLOOD COUNT 6.3 10^3/uL (4.3-11.0)
[2023-06-09 18:14] LABS: SMEAR SCAN COMMENT YES
[2023-06-09 18:27] LABS: ALBUMIN 3.7 GM/DL (3.2-4.5); CHLORIDE 105 MMOL/L (98-107); POTASSIUM 4.6 MMOL/L (3.6-5.0); SODIUM 133 MMOL/L (135-145)
[2023-06-09 18:28] LABS: CALCIUM 9.7 MG/DL (8.5-10.1)
[2023-06-09 18:29] LABS: GLUCOSE 114 MG/DL (70-105); TOTAL PROTEIN 6.4 GM/DL (6.4-8.2)
[2023-06-09 18:30] LABS: CARBON DIOXIDE 19 MMOL/L (21-32)
[2023-06-09 18:31] LABS: BILIRUBIN,TOTAL 0.8 MG/DL (0.1-1.0)
[2023-06-09 18:33] LABS: ALKALINE PHOSPHATASE 85 U/L (40-136); CREATININE SERUM 1.26 MG/DL (0.60-1.30); GFR ESTIMATED 42
--- NOTE | 2023-06-09 18:33 | Diagnostic Imaging Report ---
Indication: Recent diagnosis of COVID, shortness of breath. Compared: 06/04/2023 Findings: The lungs are clear. No failure, effusion or pneumothorax. There has been no change. Impression: Stable unremarkable frontal chest x-ray. Dictated by: Dictated on workstation # [id number]
[2023-06-09 18:34] LABS: BUN/CREATININE RATIO 18
[2023-06-09 18:36] LABS: ALANINE AMINOTRANSFERASE 14 U/L (0-55); MAGNESIUM 1.9 MG/DL (1.6-2.4)
[2023-06-09 18:42] LABS: PROTHROMBIN TIME PATIENT 13.2 SEC (12.2-14.7)
[2023-06-09 19:41] LABS: BACTERIA,URINE MODERATE /HPF; BILIRUBIN,URINE NEGATIVE (NEGATIVE); CLARITY,URINE CLOUDY; COLOR,URINE YELLOW; GLUCOSE, URINE (UA) NEGATIVE (NEGATIVE); KETONES,URINE 1+ (NEGATIVE); LEUKOCYTE ESTERASE ,URINE 1+ (NEGATIVE); NITRITE,URINE POSITIVE (NEGATIVE); PROTEIN,URINE 3+ (NEGATIVE); RBC,URINE 25-50 /HPF; WBC,URINE TNTC /HPF
[2023-06-09 21:00] VITALS: BP 142/65
[2023-06-09] MEDS ORDERED: ANTACID SUSPENSION 30 ML UDC PO PRN (21:00)
[2023-06-09] MEDS ORDERED: LACTULOSE SYRUP 10GM/15ML 30ML UDC PO PRN (21:00)
[2023-06-09] MEDS ORDERED: MILK OF MAGNESIA 400 MG/5 ML 30 ML UDC PO PRN (21:00)
[2023-06-09] MEDS ORDERED: ONDANSETRON 4 MG ORAL DISSOLVE TABLET PO PRN (21:00)
[2023-06-09] MEDS ORDERED: HYDROmorphone INJECTION 2 MG/ML VIAL IV PRN (21:00)
[2023-06-09] MEDS ORDERED: BISACODYL 10 MG SUPPOSITORY PR PRN (21:00)
[2023-06-09] MEDS ORDERED: CALCIUM CARBONATE 500 MG CHEW TABLET PO PRN (21:00)
[2023-06-09] MEDS ORDERED: NS IV 1000 ML 0 ML ONE (21:19)
[2023-06-09 21:21] VITALS: BP 131/75
[2023-06-09] MEDS: SENNOSIDES 8.6 MG TABLET PO SCH (21:35)
[2023-06-09] MEDS: DOCUSATE SODIUM 100 MG CAPSULE PO SCH (21:35)
[2023-06-09] MEDS: ENOXAPARIN 30 MG/0.3 ML SYRINGE SC SCH (21:36)
[2023-06-09] MEDS: NS IV 1000 ML 1,000 ML IV SCH (21:37)
[2023-06-09] MEDS: oxyCODONE IMMEDIATE RELEASE 5 MG TABLET PO PRN (21:46)
[2023-06-09 23:53] VITALS: BP 130/67
[2023-06-09] MEDS: ONDANSETRON INJECTION 4 MG/2 ML (SDV) IV PRN (23:55)
[2023-06-10 03:44] VITALS: BP 121/62
[2023-06-10] MEDS: MEROPENEM INJECTION 1,000 MG in NS (IVPB) 100 ML 100 ML IV SCH ×2 (05:28→17:47)
[2023-06-10 06:05] LABS: MONOCYTES # (AUTO) 0.5 10^3/uL (0.0-1.0)
[2023-06-10 06:08] LABS: BASOPHILS % (AUTO) 0 % (0-10); EOSINOPHILS % (AUTO) 0 % (0-10); HEMATOCRIT 40 % (35-52); HEMOGLOBIN 12.9 g/dL (11.5-16.0); LYMPHOCYTES # (AUTO) 1.5 10^3/uL (1.0-4.0); LYMPHOCYTES % (AUTO) 32 % (12-44); MEAN CORPUSCULAR HEMOGLOBIN 29 pg (25-34); MEAN CORPUSCULAR HGB CONC 32 g/dL (32-36); MEAN CORPUSCULAR VOLUME 89 fL (80-99); MEAN PLATELET VOLUME 11.1 fL (9.0-12.2); MONOCYTES % (AUTO) 12 % (0-12); NEUTROPHILS # (AUTO) 2.5 10^3/uL (1.8-7.8); NEUTROPHILS % (AUTO) 55 % (42-75); PLATELET COUNT 124 10^3/uL (130-400); WHITE BLOOD COUNT 4.5 10^3/uL (4.3-11.0)
[2023-06-10 06:54] LABS: ALBUMIN 3.1 GM/DL (3.2-4.5); BILIRUBIN,TOTAL 0.5 MG/DL (0.1-1.0); CALCIUM 8.9 MG/DL (8.5-10.1); CREATININE SERUM 0.9 MG/DL (0.60-1.30); POTASSIUM 4.5 MMOL/L (3.6-5.0); TOTAL PROTEIN 5.1 GM/DL (6.4-8.2)
[2023-06-10 07:22] VITALS: BP 134/82
[2023-06-10] MEDS: ACETAMINOPHEN 325 MG TABLET PO PRN ×2 (08:41→21:06)
[2023-06-10] MEDS: SENNOSIDES 8.6 MG TABLET PO SCH ×2 (08:42→20:31)
[2023-06-10] MEDS: DOCUSATE SODIUM 100 MG CAPSULE PO SCH ×2 (08:42→20:31)
--- NOTE | 2023-06-10 09:55 | History & Physical ---
SERENITY RIVERA 06/10/23 0955: History of Present Illness History of Present Illness Reason for visit/HPI CC: Generalized Weakness HPI: Mrs. Hamlin is an 82 y/o female w/ PMH hypothyroidism, chronic co nstipation, and colon cancer presenting for generalized weakness. She states she was so weak she could not get herself up to go to the bathroom. She lives alone at home. She was admitted on 06/05 for generalized weakness as well and was positive for COVID. Per EMS last night, patient had a fever of 102F. Today she endorses having lesions in and around her pubic area, and states that some of these have been cut out by another provider. She was told that she had a fungal infection. She endorses a constant burning sensation due to the labia skin rubbing together. She endorses having a headache today, some chest pain, and fevers/chills last night. Dr. Blair and Caterina, RN performed sensitive exam. 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 Date of Admission Jun 09, 2023 at 20:24 Date Seen by a Provider: Jun 10, 2023 Time Seen by a Provider: 09:00 I consulted on this patient on 06/10/23 09:50 Attending Physician Deleted Admitting Physician Admitting Physician: Saray Blair DO Attending Physician: Saray Blair DO Consult Allergies and Home Medications Allergies Coded Allergies: Penicillins (Unverified Allergy, Unknown, 06/04/23) aspirin (Unverified Allergy, Unknown, 06/04/23) cephalexin (Unverified Allergy, Unknown, 06/04/23) codeine (Unverified Allergy, Unknown, 06/04/23) diphenhydramine (Unverified Allergy, Unknown, 06/04/23) iodine (Unverified Allergy, Unknown, 06/04/23) meperidine (Unverified Allergy, Unknown, 06/04/23) Uncoded Allergies: ANTIHISTAMINES (Allergy, Unknown, 06/04/23) DARVOTRON (Allergy, Unknown, 06/04/23) Patient Home Medication List Home Medication List Reviewed: Yes Levothyroxine Sodium (Levothyroxine Sodium) 50 Mcg Tablet, 50 MCG PO DAILY, (Reported) Entered as Reported by: SALEEM LILLY on 06/06/23 2976 Last Action: Reviewed Discontinued Medications Linaclotide (Linzess) 72 Mcg Capsule, 72 MCG PO DAILY, (Reported) Discontinued Reason: No Longer Taking Entered as Reported by: SALEEM LILLY on 06/06/231242 Last Action: Discontinued Past Aaqphpo-Fnyxqh-Bcrehw Hx Patient Social History Tobacco Use?: No Use of E-Cig and/or Vaping dev: No Substance use?: No Alcohol Use?: No Pt feels they are or have been: No Immunizations Up To Date Tetanus Booster (TDap): Unknown Current Status status: No status: No Advance Directives: No Communicates: Verbally Primary Language: Azerbaijani Preferred Spoken Language: Azerbaijani Is interpretation needed?: No Sensory deficits: Hearing impairment Implanted or Applied Medical D: None Past Medical History Chronic Constipation Hypothyroidsim Hearing Impairment: Hard of Hearing Review of Systems Constitutional: chills, fever, malaise, weakness EENTM: hearing loss; No double vision Respiratory: dyspnea on exertion; No stridor, No wheezing Cardiovascular: chest pain; No palpitations Gastrointestinal: No abdominal pain; constipation; No nausea, No vomiting Genitourinary: dysuria Musculoskeletal: No muscle pain Psychiatric/Neurological: Headache, Weakness Physical Exam Vital Signs Vital Signs - First Documented 06/09/23 06/09/23 06/09/23 17:40 21:00 21:21 Temp 38.0 Pulse 92 Resp 20 B/P (MAP) 131/75 (93) Pulse Ox 96 O2 Delivery Room Air FiO2 21 Capillary Refill : Height, Weight, BMI Height: '" Weight: lbs. oz. kg; 20.45 BMI Method: General Appearance: No Apparent Distress HEENT: PERRL/EOMI, Pale Conjunctivae (L), Pale Conjunctivae (R) Neck: Full Range of Motion, Non Tender Respiratory: Chest Non Tender, No Accessory Muscle Use, Rales, Rhonci Cardiovascular: Regular Rate, Rhythm, No Gallop, No Murmur Gastrointestinal: Normal Bowel Sounds, Non Tender, Soft Neurologic/Psychiatric: Alert, Oriented x3 Skin: Normal Color, Warm/Dry Assessment/Plan Assessment and Plan Ms. Hamlin is an 82 y/o female presenting for generalized weakness Plan: UTI/Sepsis -Chest XR unremarkable -UA: 3+protein, TNTC WBC, moderate bacteria, +nitrate -pending urine culture -IV meropenem -monitor Generalized Weakness -likely 2/2 sepsis/uti -Hgb 12.9 DHARA/dehydration -BUN 23->18 -Cr 1.26->0.9 -IV fluids, encourage oral intake -resolved Possible Lichen Planus -patient is to follow w/ watch and clock repairer -JAMES marie provided for itch/pain relief SARAY BLAIR DO 06/11/23 0649: History of Present Illness History of Present Illness Reason for visit/HPI CC: Weakness following COVID HPI: This is an 82yoWF who was just DC following COVID admit who presented to the ER with weakness and unable to take care of herself. She has a UTI also so empirically started Meropenem due to allergies. I did examine left labia with grade school teacher and noted a plaque with abrasions but then she told me she had seen TOOL SHARPENER already and the cream which was Rxed makes it burn worse. Allergies and Home Medications Allergies Coded Allergies: Penicillins (Unverified Allergy, Unknown, 06/04/23) aspirin (Unverified Allergy, Unknown, 06/04/23) cephalexin (Unverified Allergy, Unknown, 06/04/23) codeine (Unverified Allergy, Unknown, 06/04/23) diphenhydramine (Unverified Allergy, Unknown, 06/04/23) iodine (Unverified Allergy, Unknown, 06/04/23) meperidine (Unverified Allergy, Unknown, 06/04/23) Uncoded Allergies: ANTIHISTAMINES (Allergy, Unknown, 06/04/23) DARVOTRON (Allergy, Unknown, 06/04/23) Patient Home Medication List Levothyroxine Sodium (Levothyroxine Sodium) 50 Mcg Tablet, 50 MCG PO DAILY, (Reported) Entered as Reported by: SALEEM LILLY on 06/06/231242 Last Action: Reviewed Discontinued Medications Linaclotide (Linzess) 72 Mcg Capsule, 72 MCG PO DAILY, (Reported) Discontinued Reason: No Longer Taking Entered as Reported by: SALEEM LILLY on 06/06/231242 Last Action: Discontinued Past Gbkucdc-Qwwmdy-Woxfio Hx Patient Social History Marrital Status: single Employed/Student: retired Smoking Status: Unknown if Ever Smoked Review of Systems Constitutional: see HPI, malaise, weakness Physical Exam General Appearance: No Apparent Distress, WD/WN, Chronically ill, Thin Eyes: Bilateral Eye Normal Inspection, Bilateral Eye PERRL, Bilateral Eye EOMI HEENT: PERRL/EOMI, Normal ENT Inspection, Pharynx Normal Neck: Full Range of Motion, Normal Inspection, Non Tender, Supple, Carotid Bruit Respiratory: Chest Non Tender, Lungs Clear, Normal Breath Sounds, No Accessory Muscle Use, No Respiratory Distress Cardiovascular: Regular Rate, Rhythm, No Edema, No Gallop, No JVD, No Murmur, Normal Peripheral Pulses Gastrointestinal: Normal Bowel Sounds, No Organomegaly, No Pulsatile Mass, Non Tender, Soft Back: Normal Inspection, No CVA Tenderness, No Vertebral Tenderness Extremity: Normal Capillary Refill, Normal Inspection, Normal Range of Motion, Non Tender, No Calf Tenderness, No Pedal Edema Neurologic/Psychiatric: Alert, Oriented x3, industrial engineering II-XII Norm as Tested, Abnormal Gait, Depressed Affect, Disoriented, Motor Weakness Skin: Normal Color, Warm/Dry Lymphatic: No Adenopathy Assessment/Plan Assessment and Plan Severe weakness following COVID UTI Labia plaque managed by TOOL SHARPENER Plan: Supportive care IV abx Admission Diagnosis Admission Status: Observation Supervisory-Addendum Brief Verification & Attestation Participated in pt care: history, MDM, physical Personally performed: exam, history, MDM, supervision of care Care discussed with: Medical Student Procedures: n/a Results interpretation: Verified all documentation Verification and Attestation of Medical Student E/M Service A medical student performed and documented this service in my presence. I reviewed and verified all information documented by the medical student and made modifications to such information, when appropriate. I personally performed the physical exam and medical decision making. Saray Blair, Jun 11, 2023,06:49 SERENITY RIVERA Jun 10, 2023 09:55 SARAY BLAIR DO Jun 11, 2023 06:49
[2023-06-10] MEDS: NS IV 1000 ML 1,000 ML IV SCH (10:24)
--- NOTE | 2023-06-10 11:13 | Physical Therapy Evaluation ---
PT Evaluation-General Medical Diagnosis Admission Date Jun 09, 2023 at 20:24 Medical Diagnosis: covid/generalized weakness Onset Date: Jun 09, 2023 Therapy Diagnosis Therapy Diagnosis: generalized weakness/debility Precautions Precautions/Isolations: Fall Prevention, Standard Precautions Weight Bear Status Right Lower Extremity: Right Weight Bearing/Tolerated Left Lower Extremity: Left Weight Bearing/Tolerated Referral Physician: Butch Reason for Referral: Evaluation/Treatment Medical History Additional Medical History colon cancer/SLEETMUTE Current History EMS secondary to weakness Reviewed History: Yes Social History has a caregiver at home per report Prior Prior Level of Function SCALE: Activities may be completed with or without assistive devices. 6-Uqjdxozraq-ynxnsze completes the activity by him/herself with no assistance from a helper. 5-Set-up or Clean-up Assistance-helper sets up or cleans up; patient completes activity. [place] assists only prior to or following the activity. 4-Supervision or Touching Assistance-helper provides verbal cues and/or touching/steadying and/or contact guard assistance as patient completes activity. Assistance may be provided throughout the activity or intermittently. 3-Partial/Moderate Assistance-helper does LESS THAN HALF the effort. [place] lifts, holds or supports trunk or limbs, but provides less than half the effort. 2-Substantial/Maximal Assistance-helper does MORE THAN HALF the effort. [place] lifts or holds trunk or limbs and provides more than half the effort. 4-Aedvbaode-tkatah does ALL the effort. Patient does none of the effort to complete the activity. Or, the assistance of 2 or more helpers is required for the patient to complete the activity. If activity was not attempted, code reason: 7-Patient Refused. 9-Not Applicable-not attempted and the patient did not perform the activity before the current illness, exacerbation or injury. 10-Not Attempted due to Environmental Limitations-(lack of equipment, weather restraints, etc.). 88-Not Attempted due to Medical Conditions or Safety Concerns. Bed Mobility: 6 Transfers (B,C,W/C): 6 Gait: 6 Indoor Mobility (Ambulation): Independent Prior Devices Use: None PT Evaluation-Current Subjective Patient ADAMANTLY refused to utilize FWW for mobility. Reluctantly agrees to PT. ROM/Strength ROM Lower Extremities bilateral LE WFL Strength Lower Extremities 3/5 grossly bilateral LE Integumentary/Posture Bowel Incontinence: No Bladder Incontinence: No Posture WFL Neuromuscular (Tone, Coordination, Reflexes) diminished coordination due to weakness Sensory Vision: Functional Hearing: Impaired Transfers Lying to Sitting/Side of Bed(Q: 4 Sit to Stand (QC): 3 Chair/[place] Xfer(QC): 3 Gait Mode of Locomotion: Walk Anticipated Mode of Locomotion: Walk Walk 10 feet (QC): 3 Walk 50 ft with 2 Turns(QC): 7 Walk 150 ft (QC): 7 Distance: 15' Gait Assistive Device: None Comments/Gait Description PT assist with patient adamantly refusing to use FWW Balance Sitting Static: Normal Sitting Dynamic: Normal Standing Static: Poor Standing Dynamic: Poor Assessment/Needs Patient will benefit from skilled PT to address functional strength and mobility to improve current LOF to safely return to home at maximum LOF. Rehab Potential: Fair PT Intermediate Goals Intermediate Goals PT Meat Cutter Goals Time Frame: Jun 25, 2023 Roll Left & Right (QC): 6 Sit to Lying (QC): 6 Lying-Sitting on Side/Bed(QC): 6 Sit to Stand (QC): 6 Chair/Uso-aj-Exadb Xfer(QC): 6 Toilet Transfer (QC): 6 Walk 10 feet (QC): 4 Walk 50ft with 2 Turns (QC): 4 Walk 150 ft (QC): 4 PT Plan Problem List Problem List: Activity Tolerance, Functional Strength, Safety, Balance, Gait, Transfer, Bed Mobility Treatment/Plan Treatment Plan: Continue Plan of Care Treatment Plan: Bed Mobility, Education, Functional Activity [place]ul[place], Functional Strength, Gait, Safety, Therapeutic Exercise, Transfers Treatment Duration: Jun 25, 2023 Frequency: 5 times per week Estimated Hrs Per Day: .25 hour per day Time Time In: 1055 Time Out: 1105 DATE: Jun 10, 2023 Total Billed Treatment Time: 10 [facility] SUNG TAL[facility] PT Jun 10, 2023 11:13
[2023-06-10 11:53] VITALS: BP 154/66
--- NOTE | 2023-06-10 16:07 | Occupational Therapy Eval ---
OT Evaluation-General/PLF Medical Diagnosis Admission Date Jun 09, 2023 at 20:24 Medical Diagnosis: covid/generalized weakness Onset Date: Jun 09, 2023 Therapy Diagnosis Therapy Diagnosis: decr self care, weakness, decr funct mobility, decr act tolerance Precautions Precautions/Isolations: Fall Prevention, Standard Precautions Referral Physician: Butch Pisano Reason: Evaluation/Treatment Medical History Pertinent Medical History: Hypothroidism Additional Medical History Hx colon cancer. Chronic constipation. Current History Very [place]. Dehydration, hyponatremia. UTI - sepsis. Recent Covid but does not need to be in isolation Social History Current Living Status: Alone ADL-Prior Level of Function SCALE: Activities may be completed with or without assistive devices. 7-Ymlvtksfag-ppdhezh completes the activity by him/herself with no assistance from a helper. 5-Set-up or Clean-up Assistance-helper sets up or cleans up; patient completes activity. [place] assists only prior to or following the activity. 4-Supervision or Touching Assistance-helper provides verbal cues and/or touching/steadying and/or contact guard assistance as patient completes activity. Assistance may be provided throughout the activity or intermittently. 3-Partial/Moderate Assistance-helper does LESS THAN HALF the effort. [place] lifts, holds or supports trunk or limbs, but provides less than half the effort. 2-Substantial/Maximal Assistance-helper does MORE THAN HALF the effort. [place] lifts or holds trunk or limbs and provides more than half the effort. 9-Gqjxtmafd-eemoyt does ALL the effort. Patient does none of the effort to complete the activity. Or, the assistance of 2 or more helpers is required for the patient to complete the activity. If activity was not attempted, code reason: 7-Patient Refused. 9-Not Applicable-not attempted and the patient did not perform the activity before the current illness, exacerbation or injury. 10-Not Attempted due to Environmental Limitations-(lack of equipment, weather restraints, etc.). 88-Not Attempted due to Medical Conditions or Safety Concerns. ADL PLOF Comments Pt reported that she was able to care for herself prior to admission. Very hard of hearing makes complete ADL hx difficult Self Care: Independent Functional Cognition: Independent OT Current Status Subjective Pt need in room, up in bed, very anxious because she needed to toilet. No pain reported but many groans Appearance Alert, cooperative Mental Status/Objective Attachments: IV Current Glasses/Contacts: Yes Hearing Aids: Yes (but not here) Dentures/Partials: Yes Hand Dominance: Right Upper Extremity ROM Grossly WFL bilat Upper Extremity Strength Grossly WFL bilat ADL-Treatment ADL-Current Pt was able to move to sitting EOB without help. Min assist sit to stand. Mod assist transfer to [facility] beside bed. Pt adamantly refused to use FWW. Managed clothing with mod assist for balance. Pt managed hygiene while sitting. Mod assist transferring back to bed but she got her feet into bed without help. Pt reported that she has been able to feed herself. Pt left up in bed, all needs met. Education OT Patient Education: Modified ADL techniques, Purpose of tx/functional activities, Rehab process, Safety issues, Transfer techniques Teaching Recipient: Patient Teaching Methods: Demonstration Response to Teaching: Return Demonstration, Reinforcement Needed OT Housing Relocation Goals Mcfp Goals Time Frame: Jun 17, 2023 Eating (QC): 6 Oral Hygiene (QC): 6 Toileting Hygiene (QC): 6 Shower/Bathe Self (QC): 5 Upper Body Dressing (QC): 5 Lower Body Dressing (QC): 5 On/Off Footwear (QC): 5 Additional Goals: 1-Demonstrate ADL Tasks, 2-Verbalize Understanding, 3- ImproveStrength/[place] 1=Demonstrate adherence to instructed precautions during ADL tasks. 2=Patient will verbalize/demonstrate understanding of assistive devices/modifications for ADL. 3=Patient will improve strength/tolerance for activity to enable patient to perform ADL's. OT Education/Plan Problem List/Assessment Assessment: Decreased Activ Tolerance, Decreased UE Strength, Dependent Transfers, Impaired Funct Balance, Impaired Self-Care Skills Pt would benefit from skilled OT to increase her independence in basic self care and decrease caregiver burden. Discharge Recommendations Plan/Recommendations: Continue POC Treatment Plan/Plan of Care Treatment,Training & Education: Yes Patient would benefit from OT for education, treatment and training to promote independence in ADL's, mobility, safety and/or upper extremity function for ADL's. Plan of Care: ADL Retraining, Functional Mobility, UE Funct Exercise/Act Treatment Duration: Jun 17, 2023 Frequency: 3 times per week (3-5 times a week) Estimated Hrs Per Day: .25 hour per day Agreement: Yes Rehab Potential: Fair Time Start Time: 15:20 Stop Time: 15:31 DATE: Jun 10, 2023 Total Time Billed (hr/min): 11 Billed Treatment Time visit, 11 minutes OT emily moderate intensity SARAH HERRERA OT Jun 10, 2023 16:07
[2023-06-10 16:30] VITALS: BP 138/67
[2023-06-10 19:27] VITALS: BP 163/78
[2023-06-10] MEDS: ENOXAPARIN 30 MG/0.3 ML SYRINGE SC SCH (20:31)
[2023-06-10] MEDS: LORazepam 0.5 MG TABLET PO PRN (21:05)
[2023-06-10] MEDS: MELATONIN 3 MG TABLET PO PRN (21:05)
[2023-06-11] VITALS (8 sets, daily range): BP systolic 151–166; BP diastolic 61–93
[2023-06-11] MEDS: NS IV 1000 ML 1,000 ML IV SCH ×2 (00:17→13:03)
[2023-06-11 04:46] LABS: BASOPHILS % (AUTO) 1 % (0-10); EOSINOPHILS # (AUTO) 0.1 10^3/uL (0.0-0.3); EOSINOPHILS % (AUTO) 1 % (0-10); HEMATOCRIT 39 % (35-52); HEMOGLOBIN 12.8 g/dL (11.5-16.0); LYMPHOCYTES # (AUTO) 1.6 10^3/uL (1.0-4.0); LYMPHOCYTES % (AUTO) 42 % (12-44); MEAN CORPUSCULAR HEMOGLOBIN 29 pg (25-34); MEAN CORPUSCULAR HGB CONC 33 g/dL (32-36); MEAN CORPUSCULAR VOLUME 87 fL (80-99); MEAN PLATELET VOLUME 11.1 fL (9.0-12.2); MONOCYTES # (AUTO) 0.5 10^3/uL (0.0-1.0); MONOCYTES % (AUTO) 14 % (0-12); NEUTROPHILS # (AUTO) 1.4 10^3/uL (1.8-7.8); NEUTROPHILS % (AUTO) 38 % (42-75); PLATELET COUNT 183 10^3/uL (130-400); WHITE BLOOD COUNT 3.7 10^3/uL (4.3-11.0)
[2023-06-11 04:53] LABS: ALBUMIN 2.9 GM/DL (3.2-4.5); POTASSIUM 4.1 MMOL/L (3.6-5.0)
[2023-06-11 04:54] LABS: CALCIUM 8.7 MG/DL (8.5-10.1)
[2023-06-11 04:55] LABS: TOTAL PROTEIN 4.9 GM/DL (6.4-8.2)
[2023-06-11 04:57] LABS: BILIRUBIN,TOTAL 0.4 MG/DL (0.1-1.0)
[2023-06-11 04:59] LABS: CREATININE SERUM 0.84 MG/DL (0.60-1.30)
[2023-06-11] MEDS: MEROPENEM INJECTION 1,000 MG in NS (IVPB) 100 ML 100 ML IV SCH ×2 (06:10→17:43)
[2023-06-11] MEDS: DOCUSATE SODIUM 100 MG CAPSULE PO SCH ×2 (08:02→20:55)
[2023-06-11] MEDS: SENNOSIDES 8.6 MG TABLET PO SCH ×2 (08:02→20:55)
[2023-06-11] MEDS: ACETAMINOPHEN 325 MG TABLET PO PRN ×2 (13:03→17:43)
--- NOTE | 2023-06-11 19:19 | Progress Note - Hospitalist ---
Subjective HPI/CC On Admission Date Seen by Provider: Jun 11, 2023 Time Seen by Provider: 10:20 Subjective/Events-last exam She does not feel well. She has no specific complaints. Focused Exam Lactate Level 06/09/23 18:00: Lactic Acid Level 1.05 Objective Exam Vital Signs Vital Signs Date Time Temp Pulse Resp B/P (MAP) Pulse Ox O2 Delivery O2 Flow Rate FiO2 06/11/23 15:45 37.5 61 20 163/76 (105) 94 Room Air 06/09/23 21:21 21 Capillary Refill : General Appearance: No Apparent Distress, Chronically ill Respiratory: Lungs Clear, No Respiratory Distress Cardiovascular: Regular Rate, Rhythm, No Murmur Gastrointestinal: Normal Bowel Sounds, Soft Extremity: Normal Inspection, No Pedal Edema Neurologic/Psychiatric: Alert, Normal Mood/Affect Results/Procedures Lab Laboratory Tests 06/11/23 04:36 Patient resulted labs reviewed. Assessment/Plan Assessment and Plan Assess & Plan/Chief Complaint Sepsis due to E coli UTI Labial plaque Debility Mer[place] Await urine culture results PT/OT Diagnosis/Problems Diagnosis/Problems (1) Sepsis due to urinary tract infection Status: Acute (2) E. coli UTI Status: Acute (3) Labial lesion Status: Chronic (4) Debility Status: Acute (5) DHARA (acute kidney injury) Status: Resolved Resolution Date/Time: 06/11/23 @ 19:18 SHIRLENE RUBIO MD Jun 11, 2023 19:19
[2023-06-11] MEDS: ENOXAPARIN 30 MG/0.3 ML SYRINGE SC SCH (20:55)
[2023-06-11] MEDS ORDERED: LEVOTHYROXINE 50 MCG TABLET PO ONE (21:00)
[2023-06-11] MEDS: MELATONIN 3 MG TABLET PO PRN (21:12)
[2023-06-11] MEDS: LORazepam 0.5 MG TABLET PO PRN (21:13)
[2023-06-12] MEDS: NS IV 1000 ML 1,000 ML IV SCH ×2 (03:08→17:19)
[2023-06-12 03:21] VITALS: BP 174/81
[2023-06-12] MEDS: MEROPENEM INJECTION 1,000 MG in NS (IVPB) 100 ML 100 ML IV SCH ×2 (06:01→18:02)
[2023-06-12] MEDS: LEVOTHYROXINE 50 MCG TABLET PO SCH (06:01)
[2023-06-12 06:15] LABS: BASOPHILS % (AUTO) 1 % (0-10); EOSINOPHILS # (AUTO) 0.1 10^3/uL (0.0-0.3); EOSINOPHILS % (AUTO) 2 % (0-10); HEMATOCRIT 42 % (35-52); HEMOGLOBIN 13.8 g/dL (11.5-16.0); LYMPHOCYTES # (AUTO) 1.5 10^3/uL (1.0-4.0); LYMPHOCYTES % (AUTO) 34 % (12-44); MEAN CORPUSCULAR HEMOGLOBIN 28 pg (25-34); MEAN CORPUSCULAR HGB CONC 33 g/dL (32-36); MEAN CORPUSCULAR VOLUME 86 fL (80-99); MEAN PLATELET VOLUME 10.3 fL (9.0-12.2); MONOCYTES # (AUTO) 0.5 10^3/uL (0.0-1.0); MONOCYTES % (AUTO) 11 % (0-12); NEUTROPHILS # (AUTO) 2.2 10^3/uL (1.8-7.8); NEUTROPHILS % (AUTO) 48 % (42-75); PLATELET COUNT 169 10^3/uL (130-400); WHITE BLOOD COUNT 4.5 10^3/uL (4.3-11.0)
[2023-06-12 06:34] LABS: ALBUMIN 3.1 GM/DL (3.2-4.5)
[2023-06-12 06:36] LABS: CALCIUM 8.9 MG/DL (8.5-10.1)
[2023-06-12 06:37] LABS: TOTAL PROTEIN 5.3 GM/DL (6.4-8.2)
[2023-06-12 06:39] LABS: BILIRUBIN,TOTAL 0.5 MG/DL (0.1-1.0)
[2023-06-12 06:41] LABS: CREATININE SERUM 0.88 MG/DL (0.60-1.30)
[2023-06-12 07:27] VITALS: BP 177/77
[2023-06-12] MEDS: SENNOSIDES 8.6 MG TABLET PO SCH ×2 (08:13→20:51)
[2023-06-12] MEDS: DOCUSATE SODIUM 100 MG CAPSULE PO SCH ×2 (08:13→20:51)
[2023-06-12] MEDS: amLODIPine 10 MG TABLET PO SCH (08:48)
[2023-06-12 11:18] VITALS: BP 137/83
[2023-06-12] MEDS: ACETAMINOPHEN 325 MG TABLET PO PRN (12:04)
[2023-06-12 16:27] VITALS: BP 144/82
[2023-06-12] MEDS: ONDANSETRON INJECTION 4 MG/2 ML (SDV) IV PRN (18:02)
--- NOTE | 2023-06-12 18:15 | Progress Note - Hospitalist ---
Subjective HPI/CC On Admission Date Seen by Provider: Jun 12, 2023 Time Seen by Provider: 11:00 Subjective/Events-last exam She is sleeping upon my arrival. She is easily awoken. She says she is not feeling well. She has no specific complaints. She just says she is sick. She says she has bills at home she needs to pay. Objective Exam Vital Signs Vital Signs Date Time Temp Pulse Resp B/P (MAP) Pulse Ox O2 Delivery O2 Flow Rate FiO2 06/12/23 16:27 36.9 85 18 144/82 (102) 94 Room Air 06/09/23 21:21 21 Capillary Refill : General Appearance: No Apparent Distress, WD/WN Respiratory: Lungs Clear, No Respiratory Distress Cardiovascular: Regular Rate, Rhythm, No Murmur Gastrointestinal: Normal Bowel Sounds, Soft Extremity: Normal Inspection, No Pedal Edema Neurologic/Psychiatric: Alert, Normal Mood/Affect Skin: Normal Color, Warm/Dry Results/Procedures Lab Laboratory Tests 06/12/23 06:03 Patient resulted labs reviewed. Assessment/Plan Assessment and Plan Assess & Plan/Chief Complaint Sepsis due to E coli UTI Labial plaque Debility [place] Await urine culture results PT/OT Diagnosis/Problems Diagnosis/Problems (1) Sepsis due to urinary tract infection Status: Acute (2) E. coli UTI Status: Acute (3) Labial lesion Status: Chronic (4) Debility Status: Acute (5) DHARA (acute kidney injury) Status: Resolved Resolution Date/Time: 06/11/23 @ 19:18 SHIRLENE RUBIO MD Jun 12, 2023 18:15
[2023-06-12 19:58] VITALS: BP 133/84
[2023-06-12] MEDS: ENOXAPARIN 30 MG/0.3 ML SYRINGE SC SCH (20:51)
[2023-06-12 23:31] VITALS: BP 146/75
[2023-06-13 03:27] VITALS: BP 127/72
[2023-06-13] MEDS: MEROPENEM INJECTION 1,000 MG in NS (IVPB) 100 ML 100 ML IV SCH ×2 (05:55→17:40)
[2023-06-13] MEDS: LEVOTHYROXINE 50 MCG TABLET PO SCH (05:55)
[2023-06-13 06:06] LABS: BASOPHILS % (AUTO) 1 % (0-10); EOSINOPHILS # (AUTO) 0.1 10^3/uL (0.0-0.3); EOSINOPHILS % (AUTO) 2 % (0-10); HEMATOCRIT 44 % (35-52); HEMOGLOBIN 14.9 g/dL (11.5-16.0); LYMPHOCYTES # (AUTO) 1.6 10^3/uL (1.0-4.0); LYMPHOCYTES % (AUTO) 27 % (12-44); MEAN CORPUSCULAR HEMOGLOBIN 29 pg (25-34); MEAN CORPUSCULAR HGB CONC 34 g/dL (32-36); MEAN CORPUSCULAR VOLUME 85 fL (80-99); MEAN PLATELET VOLUME 10.4 fL (9.0-12.2); MONOCYTES # (AUTO) 0.7 10^3/uL (0.0-1.0); MONOCYTES % (AUTO) 11 % (0-12); NEUTROPHILS # (AUTO) 3.4 10^3/uL (1.8-7.8); NEUTROPHILS % (AUTO) 56 % (42-75); PLATELET COUNT 195 10^3/uL (130-400); WHITE BLOOD COUNT 6.2 10^3/uL (4.3-11.0)
[2023-06-13 06:33] LABS: ALBUMIN 3.4 GM/DL (3.2-4.5); BILIRUBIN,TOTAL 0.6 MG/DL (0.1-1.0); CALCIUM 9.4 MG/DL (8.5-10.1); CREATININE SERUM 0.82 MG/DL (0.60-1.30); POTASSIUM 3.8 MMOL/L (3.6-5.0); TOTAL PROTEIN 5.8 GM/DL (6.4-8.2)
[2023-06-13 07:05] VITALS: BP 129/73
[2023-06-13] MEDS: SENNOSIDES 8.6 MG TABLET PO SCH ×2 (08:27→19:21)
[2023-06-13] MEDS: DOCUSATE SODIUM 100 MG CAPSULE PO SCH ×2 (08:27→19:21)
[2023-06-13] MEDS: amLODIPine 10 MG TABLET PO SCH (08:27)
--- NOTE | 2023-06-13 10:52 | Progress Note - Hospitalist ---
Subjective HPI/CC On Admission Date Seen by Provider: Jun 13, 2023 Time Seen by Provider: 11:00 Subjective/Events-last exam Awaiting placement Denies new issues Very weak and debilitated Needs supervisor intermediates care Review of Systems General: Fatigue, Malaise Objective Exam Vital Signs Vital Signs Date Time Temp Pulse Resp B/P (MAP) Pulse Ox O2 Delivery O2 Flow Rate FiO2 06/14/23 00:00 37.0 86 14 123/70 (87) 93 Room Air 06/09/23 21:21 21 Capillary Refill : General Appearance: No Apparent Distress, WD/WN, Chronically ill Respiratory: Lungs Clear, Normal Breath Sounds Cardiovascular: Regular Rate, Rhythm Neurologic/Psychiatric: Alert, Oriented x3 Results/Procedures Lab Laboratory Tests 06/13/23 05:55 Patient resulted labs reviewed. Assessment/Plan Assessment and Plan Assess & Plan/Chief Complaint Continue current care Await placement Clinical Quality Measures Admission Status Admission Dx Severe weakness following COVID UTI Labia plaque managed by [employer] INTERVIEWER Plan: Supportive care IV abx ADAN BLAIR DO Jun 13, 2023 10:52
[2023-06-13 11:41] VITALS: BP 171/82
--- NOTE | 2023-06-13 12:07 | Physical Therapy Daily Note ---
PT Daily Note-Current Subjective Patient adamantly declined OOB activity and demanded assistance to remove her robe due to c/o being hot. PT instructed patient to perform this task independently. Pain Section J - Health Conditions 1. Rarely or not at all 2. Occasionally 3. Frequently 4. Almost constantly 8. Unable to answer Pain Effect on Sleep: 4 Pain Interference with Therapy: 4 Pain Interference w/Day-to-Day: 4 Transfers SCALE: Activities may be completed with or without assistive devices. 8-Kgabvjvzha-asfefya completes the activity by him/herself with no assistance from a helper. 5-Set-up or Clean-up Assistance-helper sets up or cleans up; patient completes activity. [place] assists only prior to or following the activity. 4-Supervision or Touching Assistance-helper provides verbal cues and/or touching/steadying and/or contact guard assistance as patient completes activity. Assistance may be provided throughout the activity or intermittently. 3-Partial/Moderate Assistance-helper does LESS THAN HALF the effort. [place] lifts, holds or supports trunk or limbs, but provides less than half the effort. 2-Substantial/Maximal Assistance-helper does MORE THAN HALF the effort. [place] lifts or holds trunk or limbs and provides more than half the effort. 6-Pbcooqpoc-hzycqm does ALL the effort. Patient does none of the effort to complete the activity. Or, the assistance of 2 or more helpers is required for the patient to complete the activity. If activity was not attempted, code reason: 7-Patient Refused. 9-Not Applicable-not attempted and the patient did not perform the activity before the current illness, exacerbation or injury. 10-Not Attempted due to Environmental Limitations-(lack of equipment, weather restraints, etc.). 88-Not Attempted due to Medical Conditions or Safety Concerns. Roll Left & Right (QC): 6 (bridging to remove robe independently) Weight Bearing Right Lower Extremity: Right Weight Bearing/Tolerated Left Lower Extremity: Left Weight Bearing/Tolerated Assessment Patient is very hateful and adamantly declined OOB activity. PT attempted to educated patient on importance of performing OOB activity to improve strength and mobility, however, patient continued to refuse. PT Jail Goals Jail Goals PT Jail Goals Time Frame: Jun 25, 2023 Roll Left & Right (QC): 6 Sit to Lying (QC): 6 Lying-Sitting on Side/Bed(QC): 6 Sit to Stand (QC): 6 Chair/Kqi-iv-Dtphc Xfer(QC): 6 Toilet Transfer (QC): 6 Walk 10 feet (QC): 4 Walk 50ft with 2 Turns (QC): 4 Walk 150 ft (QC): 4 PT Plan Treatment/Plan Treatment Plan: Continue Plan of Care Treatment Plan: Bed Mobility, Education, Functional Activity [place], Functional Strength, Gait, Safety, Therapeutic Exercise, Transfers Treatment Duration: Jun 25, 2023 Frequency: 5 times per week Estimated Hrs Per Day: .25 hour per day Time Time In: 1132 Time Out: 1140 DATE: Jun 13, 2023 Total Billed Treatment Time: 8 Total Billed Treatment 1 visit FA 8 min SUNG TALBERT PT Jun 13, 2023 12:07
--- NOTE | 2023-06-13 13:38 | Occupational Ther Daily Note ---
OT Current Status-Daily Note Subjective Patient calling out into hallways to get her robe off. OT educated patient in use of call light Mental Status/Objective Patient Orientation: Person, Place ADL-Treatment Therapy Code Descriptions/Definitions Functional [place] Measure: 0=Not Assessed/NA 4=Minimal Assistance 1=Total Assistance 5=Supervision or Setup 2=Maximal Assistance 6=Modified [place] 3=Moderate Assistance 7=Complete IndependenceSCALE: Activities may be completed with or without assistive devices. 9-Rbgeuafjsp-kutoobd completes the activity by him/herself with no assistance from a helper. 5-Set-up or Clean-up Assistance-helper sets up or cleans up; patient completes activity. [place] assists only prior to or following the activity. 4-Supervision or Touching Assistance-helper provides verbal cues and/or touching /steadying and/or contact guard assistance as patient completes activity. Assistance may be provided throughout the activity or intermittently. 3-Partial/Moderate Assistance-helper does LESS THAN HALF the effort. [place] lifts, holds or supports trunk or limbs, but provides less than half the effort. 2-Substantial/Maximal Assistance-helper does MORE THAN HALF the effort. [place] lifts or holds trunk or limbs and provides more than half the effort. 5-Vlaqnklrw-nttrmm does ALL the effort. Patient does none of the effort to complete the activity. Or, the assistance of 2 or more helpers is required for the patient to complete the activity. If activity was not attempted, code reason: 7-Patient Refused. 9-Not Applicable-not attempted and the patient did not perform the activity before the current illness, exacerbation or injury. 10-Not Attempted due to Environmental Limitations-(lack of equipment, weather restraints, etc.). 88-Not Attempted due to Medical Conditions or Safety Concerns. Upper Body Dressing (QC): 5 (VC for sequence provided to patient, patient refused all other intrerventions ) Patient disrobes and pull robe out from under herself while bridging up in bed. Education OT Patient Education: Correct positioning, Modified ADL techniques, Progress toward Goal/Update tx plan, Purpose of tx/functional activities, Reviewed precautions, Rehab process, Safety issues, Transfer techniques Teaching Recipient: Patient Teaching Methods: Discussion Response to Teaching: Return Demonstration OT Junior Engineer Goals Group Home Goals Time Frame: Jun 17, 2023 Eating (QC): 6 Oral Hygiene (QC): 6 Toileting Hygiene (QC): 6 Shower/Bathe Self (QC): 5 Upper Body Dressing (QC): 5 Lower Body Dressing (QC): 5 On/Off Footwear (QC): 5 Additional Goals: 1-Demonstrate ADL Tasks, 2-Verbalize Understanding, 3-ImproveStrength/[place] 1=Demonstrate adherence to instructed precautions during ADL tasks. 2=Patient will verbalize/demonstrate understanding of assistive devices/modifications for ADL. 3=Patient will improve strength/tolerance for activity to enable patient to perform ADL's. OT Education/Plan Problem List/Assessment Assessment: Decreased Activ Tolerance Pt would benefit from skilled OT to increase her independence in basic self care and decrease caregiver burden. Discharge Recommendations Plan/Recommendations: Continue POC Treatment Plan/Plan of Care Treatment,Training & Education: Yes Patient would benefit from OT for education, treatment and training to promote independence in ADL's, mobility, safety and/or upper extremity function for ADL's. Plan of Care: ADL Retraining, Functional Mobility, UE Funct Exercise/Act Treatment Duration: Jun 17, 2023 Frequency: 3 times per week (3-5 times a week) Estimated Hrs Per Day: .25 hour per day Agreement: Yes Rehab Potential: Fair Time Start Time: 11:22 Stop Time: 11:30 DATE: Jun 13, 2023 Total Time Billed (hr/min): 8 Billed Treatment Time ADL 8 min SAMIRA RESENDIZ OT Jun 13, 2023 13:38
[2023-06-13 17:33] VITALS: BP 123/65
[2023-06-13] MEDS: ENOXAPARIN 30 MG/0.3 ML SYRINGE SC SCH (19:21)
[2023-06-13 19:41] VITALS: BP 138/73
[2023-06-14] VITALS: BP 123/70
[2023-06-14] MEDS: MEROPENEM INJECTION 1,000 MG in NS (IVPB) 100 ML 100 ML IV SCH ×2 (05:48→17:08)
[2023-06-14] MEDS: LEVOTHYROXINE 50 MCG TABLET PO SCH (05:48)
[2023-06-14 06:37] LABS: BASOPHILS % (AUTO) 0 % (0-10); EOSINOPHILS % (AUTO) 1 % (0-10); HEMATOCRIT 44 % (35-52); HEMOGLOBIN 14.7 g/dL (11.5-16.0); LYMPHOCYTES # (AUTO) 1.5 10^3/uL (1.0-4.0); LYMPHOCYTES % (AUTO) 25 % (12-44); MEAN CORPUSCULAR HEMOGLOBIN 29 pg (25-34); MEAN CORPUSCULAR HGB CONC 34 g/dL (32-36); MEAN CORPUSCULAR VOLUME 85 fL (80-99); MEAN PLATELET VOLUME 10.3 fL (9.0-12.2); MONOCYTES # (AUTO) 0.9 10^3/uL (0.0-1.0); MONOCYTES % (AUTO) 14 % (0-12); NEUTROPHILS # (AUTO) 3.4 10^3/uL (1.8-7.8); NEUTROPHILS % (AUTO) 56 % (42-75); PLATELET COUNT 171 10^3/uL (130-400); WHITE BLOOD COUNT 6.1 10^3/uL (4.3-11.0)
[2023-06-14 06:45] LABS: ALBUMIN 3.2 GM/DL (3.2-4.5); POTASSIUM 3.9 MMOL/L (3.6-5.0)
[2023-06-14 06:46] LABS: CALCIUM 8.9 MG/DL (8.5-10.1)
[2023-06-14 06:47] LABS: TOTAL PROTEIN 5.6 GM/DL (6.4-8.2)
[2023-06-14 06:49] LABS: BILIRUBIN,TOTAL 0.9 MG/DL (0.1-1.0)
[2023-06-14 06:51] LABS: CREATININE SERUM 0.87 MG/DL (0.60-1.30)
[2023-06-14 07:25] VITALS: BP 107/61
[2023-06-14] MEDS: amLODIPine 10 MG TABLET PO SCH (08:48)
[2023-06-14] MEDS: DOCUSATE SODIUM 100 MG CAPSULE PO SCH ×2 (08:48→20:07)
[2023-06-14] MEDS: SENNOSIDES 8.6 MG TABLET PO SCH ×2 (08:49→20:07)
--- NOTE | 2023-06-14 11:43 | Physical Therapy Daily Note ---
PT Daily Note-Current Subjective Patient agrees to up to recliner only. Adamantly declined ambulation in hallway. Pain Section J - Health Conditions 1. Rarely or not at all 2. Occasionally 3. Frequently 4. Almost constantly 8. Unable to answer Pain Effect on Sleep: 4 Pain Interference with Therapy: 4 Pain Interference w/Day-to-Day: 4 Transfers SCALE: Activities may be completed with or without assistive devices. 6-Tmaiwsbltz-uyzgydj completes the activity by him/herself with no assistance from a helper. 5-Set-up or Clean-up Assistance-helper sets up or cleans up; patient completes activity. [place] assists only prior to or following the activity. 4-Supervision or Touching Assistance-helper provides verbal cues and/or touching /steadying and/or contact guard assistance as patient completes activity. Assistance may be provided throughout the activity or intermittently. 3-Partial/Moderate Assistance-helper does LESS THAN HALF the effort. [place] lifts, holds or supports trunk or limbs, but provides less than half the effort. 2-Substantial/Maximal Assistance-helper does MORE THAN HALF the effort. [place] lifts or holds trunk or limbs and provides more than half the effort. 6-Jusmodnzp-cgxxbn does ALL the effort. Patient does none of the effort to complete the activity. Or, the assistance of 2 or more helpers is required for the patient to complete the activity. If activity was not attempted, code reason: 7-Patient Refused. 9-Not Applicable-not attempted and the patient did not perform the activity before the current illness, exacerbation or injury. 10-Not Attempted due to Environmental Limitations-(lack of equipment, weather restraints, etc.). 88-Not Attempted due to Medical Conditions or Safety Concerns. Lying to Sitting/Side of Bed(Q: 4 Sit to Stand (QC): 4 Chair/Imr-ib-Vtwrg Xfer(QC): 4 Weight Bearing Right Lower Extremity: Right Weight Bearing/Tolerated Left Lower Extremity: Left Weight Bearing/Tolerated Gait Training Distance: 10' Walk 10 feet (QC): 4 Gait Assistive Device: FWW Treatments Patient appear to self limit. Up in recliner with needs met. Continue to attempt to increase activity. Patient is currently SBA with all mobility. PT Staffing Coordinator Goals Staffing Coordinator Goals PT Skilled Nursing Goals Time Frame: Jun 25, 2023 Roll Left & Right (QC): 6 Sit to Lying (QC): 6 Lying-Sitting on Side/Bed(QC): 6 Sit to Stand (QC): 6 Chair/Ghy-qd-Lmdsv Xfer(QC): 6 Toilet Transfer (QC): 6 Walk 10 feet (QC): 4 Walk 50ft with 2 Turns (QC): 4 Walk 150 ft (QC): 4 PT Plan Treatment/Plan Treatment Plan: Continue Plan of Care Treatment Plan: Bed Mobility, Education, Functional Activity [place], Functional Strength, Gait, Safety, Therapeutic Exercise, Transfers Treatment Duration: Jun 25, 2023 Frequency: 5 times per week Estimated Hrs Per Day: .25 hour per day Time Time In: 1106 Time Out: 1117 DATE: Jun 14, 2023 Total Billed Treatment Time: 11 Total Billed Treatment 1 visit FA 11 min SUNG TALBERT PT Jun 14, 2023 11:43
--- NOTE | 2023-06-14 13:09 | Occupational Ther Daily Note ---
OT Current Status-Daily Note Subjective Patient is uncooperative and declined skilled interventions, safety instruction performed w/ transfers, mobility and importance of footwear in hospital Mental Status/Objective Patient Orientation: Person ADL-Treatment Therapy Code Descriptions/Definitions Functional [place] Measure: 0=Not Assessed/NA 4=Minimal Assistance 1=Total Assistance 5=Supervision or Setup 2=Maximal Assistance 6=Modified [place] 3=Moderate Assistance 7=Complete IndependenceSCALE: Activities may be completed with or without assistive devices. 8-Xjozcfqcfm-iqldhzp completes the activity by him/herself with no assistance from a helper. 5-Set-up or Clean-up Assistance-helper sets up or cleans up; patient completes activity. [place] assists only prior to or following the activity. 4-Supervision or Touching Assistance-helper provides verbal cues and/or touching/steadying and/or contact guard assistance as patient completes activity. Assistance may be provided throughout the activity or intermittently. 3-Partial/Moderate Assistance-helper does LESS THAN HALF the effort. [place] lifts, holds or supports trunk or limbs, but provides less than half the effort. 2-Substantial/Maximal Assistance-helper does MORE THAN HALF the effort. [place] lifts or holds trunk or limbs and provides more than half the effort. 7-Mixxvmpzb-qfqrzy does ALL the effort. Patient does none of the effort to complete the activity. Or, the assistance of 2 or more helpers is required for the patient to complete the activity. If activity was not attempted, code reason: 7-Patient Refused. 9-Not Applicable-not attempted and the patient did not perform the activity before the current illness, exacerbation or injury. 10-Not Attempted due to Environmental Limitations-(lack of equipment, weather restraints, etc.). 88-Not Attempted due to Medical Conditions or Safety Concerns. Eating (QC): 5 Oral Hygiene (QC): 5 (set up) On/Off Footwear: 3 (however demonstrates physical ability to perform. ) Education OT Patient Education: Correct positioning, Exercise program, Modified ADL techniques, Progress toward Goal/Update tx plan, Purpose of tx/functional activities, Reviewed precautions, Rehab process, Safety issues, Transfer techniques Teaching Recipient: Patient Teaching Methods: Discussion Response to Teaching: Reinforcement Needed (declines safety and skilled intervention) OT Usp Goals Usp Goals Time Frame: Jun 17, 2023 Eating (QC): 6 Oral Hygiene (QC): 6 Toileting Hygiene (QC): 6 Shower/Bathe Self (QC): 5 Upper Body Dressing (QC): 5 Lower Body Dressing (QC): 5 On/Off Footwear (QC): 5 Additional Goals: 1-Demonstrate ADL Tasks, 2-Verbalize Understanding, 3- ImproveStrength/[place] 1=Demonstrate adherence to instructed precautions during ADL tasks. 2=Patient will verbalize/demonstrate understanding of assistive devices/modifications for ADL. 3=Patient will improve strength/tolerance for activity to enable patient to perform ADL's. OT Education/Plan Problem List/Assessment Assessment: Decreased Activ Tolerance, Decreased Safety Aware, Impaired Funct B bonce Pt would benefit from skilled OT to increase her independence in basic self care and decrease caregiver burden. Discharge Recommendations Plan/Recommendations: Discontinue OT (patient is noncomplient and does not wish to continue) Treatment Plan/Plan of Care Patient would benefit from OT for education, treatment and training to promote independence in ADL's, mobility, safety and/or upper extremity function for ADL's. Plan of Care: ADL Retraining, Functional Mobility, UE Funct Exercise/Act Treatment Duration: Jun 17, 2023 Frequency: 3 times per week (3-5 times a week) Estimated Hrs Per Day: .25 hour per day Agreement: Yes Rehab Potential: Fair Time Start Time: 11:06 Stop Time: 11:18 DATE: Jun 14, 2023 Total Time Billed (hr/min): 12 Billed Treatment Time FA 12 min SAMIRA RESENDIZ OT Jun 14, 2023 13:09
[2023-06-14 16:21] VITALS: BP 116/65
[2023-06-14 18:37] VITALS: BP 116/65
[2023-06-14] MEDS: oxyCODONE IMMEDIATE RELEASE 5 MG TABLET PO PRN (20:02)
[2023-06-14] MEDS: ENOXAPARIN 30 MG/0.3 ML SYRINGE SC SCH (20:08)
[2023-06-15 00:17] VITALS: BP 110/61
[2023-06-15] MEDS: LEVOTHYROXINE 50 MCG TABLET PO SCH (05:43)
[2023-06-15] MEDS: oxyCODONE IMMEDIATE RELEASE 5 MG TABLET PO PRN (05:43)
[2023-06-15 05:49] LABS: BASOPHILS % (AUTO) 1 % (0-10); EOSINOPHILS # (AUTO) 0.1 10^3/uL (0.0-0.3); EOSINOPHILS % (AUTO) 1 % (0-10); HEMATOCRIT 47 % (35-52); HEMOGLOBIN 15.4 g/dL (11.5-16.0); LYMPHOCYTES # (AUTO) 2.6 10^3/uL (1.0-4.0); LYMPHOCYTES % (AUTO) 41 % (12-44); MEAN CORPUSCULAR HEMOGLOBIN 28 pg (25-34); MEAN CORPUSCULAR HGB CONC 33 g/dL (32-36); MEAN CORPUSCULAR VOLUME 87 fL (80-99); MEAN PLATELET VOLUME 10.3 fL (9.0-12.2); MONOCYTES # (AUTO) 0.7 10^3/uL (0.0-1.0); MONOCYTES % (AUTO) 11 % (0-12); NEUTROPHILS # (AUTO) 2.6 10^3/uL (1.8-7.8); NEUTROPHILS % (AUTO) 42 % (42-75); PLATELET COUNT 193 10^3/uL (130-400); WHITE BLOOD COUNT 6.2 10^3/uL (4.3-11.0)
[2023-06-15 06:15] LABS: ALBUMIN 3.5 GM/DL (3.2-4.5); BILIRUBIN,TOTAL 0.8 MG/DL (0.1-1.0); CALCIUM 9.6 MG/DL (8.5-10.1); CREATININE SERUM 0.87 MG/DL (0.60-1.30); POTASSIUM 4.1 MMOL/L (3.6-5.0); TOTAL PROTEIN 6.2 GM/DL (6.4-8.2)
[2023-06-15 07:32] VITALS: BP 129/60
[2023-06-15] MEDS: amLODIPine 10 MG TABLET PO SCH (08:58)
[2023-06-15] MEDS: DOCUSATE SODIUM 100 MG CAPSULE PO SCH ×2 (09:02→20:42)
[2023-06-15] MEDS: SENNOSIDES 8.6 MG TABLET PO SCH ×2 (09:02→20:42)
--- NOTE | 2023-06-15 10:54 | Physical Therapy Progress Note ---
Therapy Progress Note Patient adamantly refused treatment due to heart burn. "I'm not getting out of this bed, I know how to deal with this." Will attempt treatment again tomorrow and progress per patient tolerance. SUNI GUARDADO PT Jun 15, 2023 10:54
--- NOTE | 2023-06-15 12:38 | Progress Note - Hospitalist ---
Subjective HPI/CC On Admission Date Seen by Provider: Jun 15, 2023 Time Seen by Provider: 11:00 Subjective/Events-last exam No major issues Awaiting placement Reviewed labs Objective Exam Vital Signs Vital Signs Date Time Temp Pulse Resp B/P (MAP) Pulse Ox O2 Delivery O2 Flow Rate FiO2 06/15/23 23:38 36.6 70 16 105/68 (80) 91 Room Air 06/14/23 18:37 21 Capillary Refill : General Appearance: No Apparent Distress, WD/WN, Chronically ill Respiratory: Lungs Clear Cardiovascular: Regular Rate, Rhythm Neurologic/Psychiatric: Alert, Oriented x3 Results/Procedures Lab Laboratory Tests 06/15/23 05:40 Patient resulted labs reviewed. Assessment/Plan Assessment and Plan Assess & Plan/Chief Complaint Continue current care Await placement Clinical Quality Measures Admission Status Admission Dx Severe weakness following COVID UTI Labia plaque managed by INSURANCE VERIFIER Plan: Supportive care IV abx ADAN BLAIR DO Jun 15, 2023 12:38
[2023-06-15] MEDS ORDERED: PANTOPRAZOLE 40 MG TABLET PO NR (12:45)
[2023-06-15 16:08] VITALS: BP 120/70
[2023-06-15] MEDS: ENOXAPARIN 30 MG/0.3 ML SYRINGE SC SCH (20:42)
[2023-06-15 23:38] VITALS: BP 105/68
[2023-06-16] MEDS: LEVOTHYROXINE 50 MCG TABLET PO SCH (05:38)
--- NOTE | 2023-06-16 07:55 | Physical Therapy Progress Note ---
Therapy Progress Note Patient adamantly declined PT stating,"I've been up walking to the bathroom all night with the walker. I'm better. I don't need you in here." PT will attempt later today or tomorrow SUNG Peter PT Jun 16, 2023 07:55
[2023-06-16] MEDS: DOCUSATE SODIUM 100 MG CAPSULE PO SCH (08:18)
[2023-06-16] MEDS: amLODIPine 10 MG TABLET PO SCH (08:18)
[2023-06-16] MEDS: SENNOSIDES 8.6 MG TABLET PO SCH (08:19)
[2023-06-16 08:37] VITALS: BP 111/66
[2023-06-16] MEDS ORDERED: PANTOPRAZOLE 40 MG TABLET PO SCH (09:00)
[2023-06-16 12:11] VITALS: BP 134/80
[2023-06-16] MEDS ORDERED: AMLO-251 PO (12:11)
--- NOTE | 2023-06-16 12:12 | D/C HH Face to Face Order ---
D/C Face to Face Orders Reconcile Patient Problems Problems Reviewed?: Yes Instructions for Patient Via [facility], Patient Instructions/FollowUp: PCP 1 week Physician to follow Patient: PCP Discharge Diet for Home: No Restrictions Patient Problems: Debility followng COVID Patient Data-Allergies,Ht & Wt Patient Allergies: Coded Allergies: Penicillins (Unverified Allergy, Unknown, 06/04/23) aspirin (Unverified Allergy, Unknown, 06/04/23) cephalexin (Unverified Allergy, Unknown, 06/04/23) codeine (Unverified Allergy, Unknown, 06/04/23) diphenhydramine (Unverified Allergy, Unknown, 06/04/23) iodine (Unverified Allergy, Unknown, 06/04/23) meperidine (Unverified Allergy, Unknown, 06/04/23) Uncoded Allergies: ANTIHISTAMINES (Allergy, Unknown, 06/04/23) DARVOTRON (Allergy, Unknown, 06/04/23) Home Health Need/Face to Face Date of Face to Face: Jun 16, 2023 Clinical Findings: Generalized weakness and fatigue I have seen Pt [id number]: Yes Discharged To: Home Diagnosis/Conditions: Debility Patient is Homebound due to: Muscle weakness Homebound Status Due to the above stated illness, injury or surgical procedure (medical condition or diagnosis) and associated clinical findings, the patient is homebound because of his/her inability to leave home except with aid of a supportive device and/or person AND leaving the home requires a considerable and taxing effort or is medically contraindicated. Pt req the following assistanc: Walker Home Health Nursing Orders Home Health Services Order: Nursing Services, Technician Plant [employer] Maintenance-Evaluate & Treat, Physical Therapy-Evaluate & Treat Home Health Infusion Therapy Line Start Date: Jun 09, 2023 Certify Stmt I certify that this patient is under my care and that I, a nurse practitioner or a physician; a senior administrative assistant working with me, had a face to face encounter that - meets the physician face to face encounter requirements with this patient as dated. ADAN BLAIR DO Jun 16, 2023 12:11
[2023-06-16 13:40] VITALS: BP 134/80
== END 2023-06-16 12:10 | disposition home health service (06) ==
LOC: EDUNIT# 17:35 → ER 17:37 → UNDOADMOB 20:24 → 4TH 20:24 → UNDODISOB 06-16 12:10
PROVIDERS: ADMIT Internal Medicine; ATTEND Internal Medicine
DX: A41.9 Sepsis, unspecified organism (principal); N39.0 Urinary tract infection, site not specified; B96.20 Unspecified Escherichia coli [E. coli] as the cause of diseases classified elsewhere; N90.89 Other specified noninflammatory disorders of vulva and perineum; N17.9 Acute kidney failure, unspecified; Z86.16 Personal history of COVID-19
CPT/HCPCS: 71045; 80053 ×7; 81000; 83605; 83735; 84484; 85025 ×7; 85610; 85730; 87040; 87077; 87088; 87186; 93005; 93041; 96361; 96365; 96366 ×4; 96375; 96376 ×4; 97162; 97166; 97530 ×3; 97535; 99284; G0378; 36415

== ENCOUNTER 2023-06-20 13:29 | Emergency (ER) | payer MEDICARE, MEDICAID ==
[~2023-06-20] VITALS: Ht 152 cm; Wt 43.9 kg
[~2023-06-20 13:29] MED LIST changes: +AMLO-251 PO
[2023-06-20 13:54] LABS: BASOPHILS # (AUTO) 0.1 10^3/uL (0.0-0.1); BASOPHILS % (AUTO) 1 % (0-10); EOSINOPHILS # (AUTO) 0.1 10^3/uL (0.0-0.3); EOSINOPHILS % (AUTO) 1 % (0-10); HEMATOCRIT 44 % (35-52); HEMOGLOBIN 14.6 g/dL (11.5-16.0); LYMPHOCYTES # (AUTO) 2.9 10^3/uL (1.0-4.0); LYMPHOCYTES % (AUTO) 32 % (12-44); MEAN CORPUSCULAR HEMOGLOBIN 28 pg (25-34); MEAN CORPUSCULAR HGB CONC 33 g/dL (32-36); MEAN CORPUSCULAR VOLUME 86 fL (80-99); MEAN PLATELET VOLUME 10.3 fL (9.0-12.2); MONOCYTES # (AUTO) 0.7 10^3/uL (0.0-1.0); MONOCYTES % (AUTO) 8 % (0-12); NEUTROPHILS # (AUTO) 5.1 10^3/uL (1.8-7.8); NEUTROPHILS % (AUTO) 58 % (42-75); PLATELET COUNT 294 10^3/uL (130-400); WHITE BLOOD COUNT 8.8 10^3/uL (4.3-11.0)
[2023-06-20 14:09] LABS: ALBUMIN 3.8 GM/DL (3.2-4.5); CHLORIDE 108 MMOL/L (98-107); INR 1.1 (0.8-1.4); POTASSIUM 4.1 MMOL/L (3.6-5.0); PROTHROMBIN TIME PATIENT 14.2 SEC (12.2-14.7); SODIUM 138 MMOL/L (135-145)
[2023-06-20 14:10] LABS: CALCIUM 10.4 MG/DL (8.5-10.1)
[2023-06-20 14:11] LABS: GLUCOSE 97 MG/DL (70-105)
[2023-06-20 14:12] LABS: TOTAL PROTEIN 6.6 GM/DL (6.4-8.2)
[2023-06-20 14:13] LABS: CARBON DIOXIDE 20 MMOL/L (21-32)
[2023-06-20 14:15] LABS: ALKALINE PHOSPHATASE 108 U/L (40-136); CREATININE SERUM 0.84 MG/DL (0.60-1.30); GFR ESTIMATED 69
[2023-06-20 14:16] LABS: BUN/CREATININE RATIO 25
--- NOTE | 2023-06-20 14:17 | ED General ---
General Chief Complaint: Cardiac/General Problems Stated Complaint: POSSIBLE AFIB Nursing Triage Note: PT PRESENTS TO ED VIA EMS FROM HOME WITH COMPLAINTS OF FEELING HEAVY CHESTED. HOME HEALTH NURSE REPORTED CONCERNS OF PT HAVING AFIB. Source of Information: Patient Exam Limitations: No Limitations History of Present Illness Date Seen by Provider: Jun 20, 2023 Time Seen by Provider: 13:34 Initial Comments Here by EMS with report of feeling weak and heaviness in her chest although patient has differing stories at different times. EMS brought patient due to call to patient's home where home health had concerns about possible A-fib for some reason. EMS reports sinus rhythm on their monitor and twelve-lead EKG. Patient reports that she has pelvic pain that is chronic and has blisters down there from something and she follows with Dr. Nelsno. She states that she does not want a catheter in her bladder and is very concerned about needlestick or IV. Patient reports that she is just weak and tired and does not feel well. Apparently she lives at home. She was admitted earlier this month for COVID and discharged home. She did have physical therapy evaluation at that time and not es indicate that she has good potential to be at home on their evaluation at that time. Timing/Duration: 1-2 Days Associated Systoms: Chest Pain; No Fever/Chills, No Nausea/Vomiting; Shortness of Air, Weakness Allergies and Home Medications Allergies Coded Allergies: Penicillins (Unverified Allergy, Unknown, 06/04/23) aspirin (Unverified Allergy, Unknown, 06/04/23) cephalexin (Unverified Allergy, Unknown, 06/04/23) codeine (Unverified Allergy, Unknown, 06/04/23) diphenhydramine (Unverified Allergy, Unknown, 06/04/23) iodine (Unverified Allergy, Unknown, 06/04/23) meperidine (Unverified Allergy, Unknown, 06/04/23) Uncoded Allergies: ANTIHISTAMINES (Allergy, Unknown, 06/04/23) DARVOTRON (Allergy, Unknown, 06/04/23) Patient Home Medication List Home Medication List Reviewed: Yes Amlodipine Besylate (Amlodipine Besylate) 10 Mg Tablet, 5 MG PO DAILY Prescribed by: ADAN BLAIR on 06/16/23 1211 Levothyroxine Sodium (Levothyroxine Sodium) 50 Mcg Tablet, 50 MCG PO DAILY, (Reported) Entered as Reported by: SALEEM LILLY on 06/06/23 9683 Review of Systems Review of Systems Constitutional: see HPI; No chills, No fever; weakness EENTM: No nose congestion, No throat pain Respiratory: no symptoms reported Cardiovascular: chest pain; No edema Gastrointestinal: No nausea, No vomiting Genitourinary: see HPI Musculoskeletal: No back pain; muscle weakness Skin: no symptoms reported Past Ujcdsan-Piulsw-Ylpnyd Hx Patient Social History Tobacco Use?: No Substance use?: No Alcohol Use?: No Pt feels they are or have been: No Past Medical History Surgery/Hospitalization HX: COLON CA THYROID"ISSUES" Gastrointestinal: Yes (COLON CANCER) Chronic Constipation Endocrine: Yes Hypothyroidsim HEENT: Yes Hearing Impairment: Hard of Hearing Family Medical History Reviewed Nursing Family Hx Physical Exam-Suspected Sepsis Physical Exam Vital Signs Vital Signs - First Documented 06/20/23 13:37 Temp 36.4 Pulse 78 Resp 40 B/P (MAP) 153/66 (95) Pulse Ox 99 Capillary Refill : Less Than 3 Seconds Blood Pressure Mean: 95 Height, Weight, BMI Height: '" Weight: lbs. oz. kg; 19.00 BMI Method: General Appearance: No Apparent Distress, Thin HEENT: PERRL/EOMI, Pharynx Normal, Other (Very hard of hearing) Neck: Non Tender, Supple Respiratory: Lungs Clear, Normal Breath Sounds Cardiovascular: Regular Rate, Rhythm, No Murmur Gastrointestinal: Non Tender, Soft Back: Normal Inspection, No CVA Tenderness, No Vertebral Tenderness Extremity: Normal Range of Motion, Non Tender Neurologic/Psychiatric: Alert, Oriented x3 Skin: normal color, warm/dry Focused Exam Lactate Level 06/20/23 13:50: Lactic Acid Level 1.19 Lactic Acid Level Laboratory Tests Test 06/20/23 13:50 Lactic Acid Level 1.19 MMOL/L (0.50-2.00) Progress/Results/Core Measures Suspected Sepsis SIRS Temperature: Pulse: 78 Respiratory Rate: 40 Laboratory Tests 06/20/23 13:48: White Blood Count 8.8 Blood Pressure 153 /66 Mean: 95 06/20/23 13:50: Lactic Acid Level 1.19 Laboratory Tests 06/20/23 13:48: Creatinine 0.84, INR Comment 1.1, Platelet Count 294, Total Bilirubin 1.0 Results/Orders Lab Results Laboratory Tests Test 06/20/23 13:48 06/20/23 13:50 06/20/23 15:08 Range/Units White Blood Count 8.8 4.3-11.0 10^3/uL Red Blood Count 5.15 H 3.80-5.11 10^6/uL Hemoglobin 14.6 11.5-16.0 g/dL Hematocrit 44 35-52 % Mean Corpuscular Volume 86 80-99 fL Mean Corpuscular Hemoglobin 28 25-34 pg Mean Corpuscular Hemoglobin Concent 33 32-36 g/dL Red Cell Distribution Width 13.1 10.0-14.5 % Platelet Count 294 130-400 10^3/uL Mean Platelet Volume 10.3 9.0-12.2 fL Immature Granulocyte % (Auto) 1 % Neutrophils (%) (Auto) 58 42-75 % Lymphocytes (%) (Auto) 32 12-44 % Monocytes (%) (Auto) 8 0-12 % Eosinophils (%) (Auto) 1 0-10 % Basophils (%) (Auto) 1 0-10 % Neutrophils # (Auto) 5.1 1.8-7.8 10^3/uL Lymphocytes # (Auto) 2.9 1.0-4.0 10^3/uL Monocytes # (Auto) 0.7 0.0-1.0 10^3/uL Eosinophils # (Auto) 0.1 0.0-0.3 10^3/uL Basophils # (Auto) 0.1 0.0-0.1 10^3/uL Immature Granulocyte # (Auto) 0.1 0.0-0.1 10^3/uL Prothrombin Time 14.2 12.2-14.7 SEC INR Comment 1.1 0.8-1.4 Activated Partial Thromboplast Time 31 24-35 SEC Sodium Level 138 135-145 MMOL/L Potassium Level 4.1 3.6-5.0 MMOL/L Chloride Level 108 H 98-107 MMOL/L Carbon Dioxide Level 20 L 21-32 MMOL/L Anion Gap 10 5-14 MMOL/L Blood Urea Nitrogen 21 H 7-18 MG/DL Creatinine 0.84 0.60-1.30 MG/DL Estimat Glomerular Filtration Rate 69 BUN/Creatinine Ratio 25 Glucose Level 97 70-105 MG/DL Calcium Level 10.4 H 8.5-10.1 MG/DL Corrected Calcium 10.6 H 8.5-10.1 MG/DL Total Bilirubin 1.0 0.1-1.0 MG/DL Aspartate Amino Transf (AST/SGOT) 18 5-34 U/L Alanine Aminotransferase (ALT/SGPT) 7 0-55 U/L Alkaline Phosphatase 108 40-136 U/L Troponin I < 0.028 <0.028 NG/ML C-Reactive Protein High Sensitivity 0.52 H 0.00-0.50 MG/DL Total Protein 6.6 6.4-8.2 GM/DL Albumin 3.8 3.2-4.5 GM/DL Lactic Acid Level 1.19 0.50-2.00 MMOL/L Urine Color YELLOW Urine Clarity CLEAR Urine pH 6.5 5-9 Urine Specific [place] 1.010 L 1.016-1.022 Urine Protein NEGATIVE NEGATIVE Urine Glucose (UA) NEGATIVE NEGATIVE Urine Ketones NEGATIVE NEGATIVE Urine Nitrite NEGATIVE NEGATIVE Urine Bilirubin NEGATIVE NEGATIVE Urine Urobilinogen 0.2 < = 1.0 MG/DL Urine Leukocyte Esterase TRACE H NEGATIVE Urine RBC (Auto) NEGATIVE NEGATIVE Urine RBC RARE /HPF Urine WBC RARE /HPF Urine Squamous Epithelial Cells 0-2 /HPF Urine Crystals NONE /LPF Urine Bacteria NEGATIVE /HPF Urine Casts NONE /LPF Urine Mucus NEGATIVE /LPF Urine Culture Indicated NO My Orders Orders - SHAHID HAMMONDS MD Ekg Tracing (06/20/23 13:34) Cbc And Automated Diff (06/20/23 13:47) Comprehensive Metabolic Panel (06/20/23 13:47) Blood Culture (06/20/23 13:47) Sputum Culture (06/20/23 13:47) Urinalysis (06/20/23 13:47) Urine Culture (06/20/23 13:47) Protime With Inr (06/20/23 13:47) Partial Thromboplastin Time (06/20/23 13:47) Chest 1 View, Ap/Pa Only (06/20/23 13:47) Ed Iv/Invasive Line Start (06/20/23 13:47) Vital Signs Adult Sepsis Patie Q15M (06/20/23 13:47) O2 (06/20/23 13:47) Remove Rings In Anticipation O (06/20/23 13:47) Lactic Acid Analyzer (06/20/23 13:47) Hs C Reactive Protein (06/20/23 13:47) Troponin I [place] (06/20/23 13:47) Ns Iv 500 Ml (Ns Iv 500 Ml) (06/20/23 16:00) Medications Given in ED Current Medications Medications Dose Ordered Sig/Beckie Route Start Time Stop Time Status Last Admin Dose Admin Sodium Chloride 500 ml @ 0 mls/hr Q0M ONCE IV 06/20/23 16:00 06/20/23 16:01 DC 06/20/23 15:55 0 MLS/HR Vital Signs/I&O 06/20/23 13:37 Temp 36.4 Pulse 78 Resp 40 B/P (MAP) 153/66 (95) Pulse Ox 99 Capillary Refill : Less Than 3 Seconds Blood Pressure Mean: 95 Progress Note : Progress Note Seen and evaluated. IV, labs including CBC, CMP, CRP, coags, troponin, UA including culture, chest x-ray and EKG ordered. Monitor patient. Differential diagnosis includes UTI, pneumonia, dehydration, electrolyte abnormality 1607: CBC reviewed and is grossly normal. CMP reviewed and is grossly normal although I would suspect that she is slightly dehydrated. Serum creatinine is okay though. Lactic acid is negative. Troponin is negative and CRP is unremarkable. UA was finally obtained and it is grossly unremarkable. We are given normal saline 500 mL bolus now. She did have isolated blood pressure of 84/68 but the blood pressure before was 128/77 and the one after was 151/74 with a repeat of 135/60. Patient is adamant that she wants to go home. We will reassess after fluids. I did discuss with her about her current medical condition and concerns for safety at home that her daughter has. Patient wants to be at home and does not want to be admitted. We will complete fluids and re discuss although there is limited admission criteria currently. Monitor patient. The condition of feeling short of breath and A-fib were not found to be significant on evaluation currently. Patient does not want further evaluation. She states if something bad medically happens at home she is okay with that. Daughter at bedside when patient stated this as well as nurse. Patient states she understands risk and is okay with that. 0451: Blood pressures remained fairly stable in the 120s to 130s systolic. Patient is adamant that she wants to go home. UA does not show any significant abnormality. When her daughter gets back we will discharge her home. I have instructed her to follow-up with Dr. Reilly and Dr. Nelson. Discharged home with return precautions. Patient verbalized understanding instructions and agreement with plan. Departure Impression Primary Impression: Palpitations Disposition: 01 HOME, SELF-CARE Condition: Stable Departure-Patient Inst. Decision time for Depature: 16:52 Referrals: NBA REILLY MD NO,LOCAL PHYSICIAN (PCP) Primary Care Physician MICHAEL NELSON DO Patient Instructions: Palpitations ED, Chest Pain (DC) Add. Discharge Instructions: All discharge instructions reviewed with patient and/or family. Voiced understanding. Ensure you are drinking an adequate amount of fluids and eat a normal diet. Follow-up with Dr. Reilly for recheck and further evaluation. Call office for appointment. You should follow-up with Dr. Nelson regarding the pain in the pelvic area and the lesions that you have. Return for worse pain, fever, vomiting, weakness, breathing problems or other concerns as needed. Continue home medications as previously prescribed. SHAHID HAMMONDS MD Jun 20, 2023 14:17
[2023-06-20 14:18] LABS: ALANINE AMINOTRANSFERASE 7 U/L (0-55)
--- NOTE | 2023-06-20 14:27 | Diagnostic Imaging Report ---
Indication: Chest heaviness. Time of Exam: 1:57 PM Comparison is made with prior chest 06/09/2023. Findings: The heart size is normal. The pulmonary vascularity is unremarkable. The lungs are clear. No infiltrate, effusion or pneumothorax is detected. Impression: No acute cardiopulmonary process is detected. Dictated by: Dictated on workstation # [id number]
[2023-06-20 15:51] LABS: CLARITY,URINE CLEAR; COLOR,URINE YELLOW; PH,URINE 6.5 (5-9)
[2023-06-20 15:52] LABS: BACTERIA,URINE NEGATIVE /HPF; BILIRUBIN,URINE NEGATIVE (NEGATIVE); GLUCOSE, URINE (UA) NEGATIVE (NEGATIVE); KETONES,URINE NEGATIVE (NEGATIVE); LEUKOCYTE ESTERASE ,URINE TRACE (NEGATIVE); NITRITE,URINE NEGATIVE (NEGATIVE); PROTEIN,URINE NEGATIVE (NEGATIVE); RBC,URINE RARE /HPF; SQUAMOUS EPITHELIAL CELL,UR 0-2 /HPF; WBC,URINE RARE /HPF
[2023-06-20] MEDS ORDERED: NS IV 500 ML 500 ML IV ONE (16:00)
[2023-06-20 17:08] VITALS: BP 136/68
== END 2023-06-20 17:08 | disposition home or self-care (01) ==
LOC: EDUNIT# 13:29 → ER 13:30
DX: R00.2 Palpitations (principal); R07.9 Chest pain, unspecified
CPT/HCPCS: 36415; 71045; 80053; 81000; 83605; 84484; 85025; 85610; 85730; 86141; 87040; 87088; 93005